=== PATIENT | male | born 1960 | race Caucasian/White ===

== ENCOUNTER 2017-12-15 16:45 | Inpatient (IN) | payer BC ==
[2017-12-15] VITALS (10 sets, daily range): BP systolic 97–198; BP diastolic 52–150; PULSE 86–128; RESP 18–36; TEMP 97.8–98.9; O2SAT 85–100
[~2017-12-15] VITALS: Ht 182.9 cm; Wt 116.5 kg
[~2017-12-15 16:45] MED LIST: AUGM875 PO; CLON1 PO; LEXA10TA PO
[2017-12-15] MEDS ORDERED: SUCCINYLCHOLINE CHLORIDE 200 MG/10 ML VIAL ONE (16:51)
[2017-12-15] MEDS ORDERED: ETOMIDATE 40 MG/20 ML VIAL ONE (16:51)
[2017-12-15] MEDS ORDERED: PROPOFOL 500 MG/50 ML INJ 50 ML ONE (16:52)
[2017-12-15] MEDS ORDERED: SODIUM CHLOR 0.9% 1000 ML INJ 1,000 ML IV SCH ×2 (17:07→18:39)
[2017-12-15] MEDS ORDERED: SUCCINYLCHOLINE CHLORIDE 100 MG/5 ML SYRINGE IV PUSH ONE (17:15)
[2017-12-15] MEDS ORDERED: PROPOFOL 1000 MG/100 ML INJ 100 ML IV PRN (17:15)
[2017-12-15] MEDS ORDERED: SODIUM CHLORIDE 0.9% FLUSH 10 ML FLUSH IV FLUSH PRN ×2 (17:15→18:45)
[2017-12-15] MEDS ORDERED: ETOMIDATE 20 MG/10 ML VIAL IV PUSH ONE (17:15)
[2017-12-15] MEDS ORDERED: ACTIVATED CHARCOAL/SORBITOL LIQUID 25 GM/120 ML BTL NG ONE (17:15)
--- NOTE | 2017-12-15 17:55 | RADRPT ---
EXAM DATE/TIME: 12/15/2017 17:32 [facility] COMPARISON: No previous studies available for comparison. INDICATIONS : Post intubation. MEDICAL HISTORY : None. SURGICAL HISTORY : None. ENCOUNTER: Initial ACUITY: 1 day PAIN SCORE: Non-responsive. LOCATION: Bilateral chest FINDINGS: Single AP view of the chest. Endotracheal tube is in place with the tip 3.5 cm above the brayan. Naso gastric tube is in place and coiled in the stomach. Low lung volumes. Patchy left lung base atelectas is. No evidence of pleural effusion or pneumothorax. Mildly prominent cardiac silhouette. CONCLUSION: Endotracheal tube and nasogastric tube in place. Low lung volumes. Elroy Esquivel MD on December 15, 2017 at 17:52 Board Certified Radiologist. This report was verified electronically.
[2017-12-15 18:01] LABS: AUTOMATED NEUTROPHIL # 6.2 TH/MM3 (1.8-7.7); BASOPHIL % 0.4 % (0.0-2.0); EOSINOPHIL % 0.2 % (0.0-4.0); HEMATOCRIT 41.1 % (39.0-51.0); HEMOGLOBIN 13.8 GM/DL (13.0-17.0); LYMPHOCYTE # 1.1 TH/MM3 (1.0-4.8); MEAN CELL VOLUME 82.9 FL (80.0-100.0); MEAN CORPUSCULAR HEMOGLOBIN 27.9 PG (27.0-34.0); MEAN CORPUSCULAR HGB CONC 33.6 % (32.0-36.0); MEAN PLATELET VOLUME 9.8 FL (7.0-11.0); MONO % 7.8 % (0.0-8.0); MONOCYTE # 0.6 TH/MM3 (0-0.9); NEUT % 77.6 % (16.0-70.0); PLATELET COUNT 194 TH/MM3 (150-450); RED BLOOD COUNT 4.96 MIL/MM3 (4.50-5.90); RED CELL DISTRIBUTION WIDTH 14.7 % (11.6-17.2)
[2017-12-15 18:03] LABS: INTERNATIONAL NORMALIZED RATIO 1.1 RATIO; PROTHROMBIN TIME - PATIENT 11.1 SEC (9.8-11.6)
--- NOTE | 2017-12-15 18:04 | PD ---
HPI Chief Complaint: OD/ Ingestion Time Seen by Provider: 17:07 Travel History International Travel<30 days: No Contact w/Intl Traveler<30days: No Traveled to known affect area: No History of Present Illness HPI 57-year-old male was brought to the emergency room by EMS emergently after a possible overdose with numerous surgical pills. His daughter found him unresponsive at home. She had last seen him at 9:30 in the morning when he went out for a job interview. She came home at 2:30 PM and found him passed out. She thought he was sleeping. At 330 she tried to wake him up and he was not waking up and she noticed empty bottle of Seroquel. The pill bottle was filled yesterday with 3 month supply and it was empty. No known vomiting. Patient was GCS of 8 on route. He was tachycardic upon arrival with GCS of 8. Patient obviously was unable to give any meaningful history. As per the daughter he has overdosed 8 years ago. PFS Past Medical History Narrative Medical List of his past medical, surgical, social and family history reviewed from the nursing note. Anxiety: Yes Headaches: Yes Hypertension: Yes Social History Alcohol Use: No Tobacco Use: No Substance Use: No Allergies-Medications (Allergen,Severity, Reaction): Coded Allergies: No Known Allergies (Verified , 10/17/10) Comments List of his allergies reviewed from the nursing note. Reported Meds & Prescriptions Reported Meds & Active Scripts Active Reported Augmentin (Amoxicillin/Clavulanate Potassium) 875 Mg Tab 875 Mg PO BID Klonopin (Clonazepam) 1 Mg Tab 1 Mg PO HS Lexapro (Escitalopram Oxalate) 10 Mg Tab 10 Mg PO DAILY Narrative Medication List of his home medications reviewed from the nursing note Review of Systems ROS Limitations: Unresponsive Except as stated in HPI: all other systems reviewed are Neg Physical Exam Narrative GENERAL: Unresponsive, obese, moderate distress SKIN: Focused skin assessment warm/dry. HEAD: Atraumatic. Normocephalic. EYES: Pupils equal and round. No scleral icterus. No injection or drainage. ENT: No nasal bleeding or discharge. Mucous membranes pink and moist. NECK: Trachea midline. No JVD. CARDIOVASCULAR: Regular rate and rhythm. No murmur appreciated. RESPIRATORY: No accessory muscle use. Clear to auscultation. Breath sounds equal bilaterally. GASTROINTESTINAL: Abdomen soft, non-tender, nondistended. Hepatic and splenic margins not palpable. MUSCULOSKELETAL: No obvious deformities. No clubbing. No cyanosis. No edema. NEUROLOGICAL: GCS of 8. PSYCHIATRIC: Unable to assess Data Data Last Documented VS Vital Signs Date Time Temp Pulse Resp B/P (MAP) Pulse Ox O2 Delivery O2 Flow Rate FiO2 12/15/17 17:03 98 100 12/15/17 16:59 123 36 132/94 (107) Room Air 12/15/17 16:48 98.9 Orders Orders Etomidate Inj (Amidate Inj) (12/15/17 16:51) Succinylcholine Inj (Quelicin Inj) (12/15/17 16:51) Propofol 500 Mg/50 Ml Inj (Diprivan 500 (12/15/17 16:52) Electrocardiogram (12/15/17 17:07) Complete Blood Count With Diff (12/15/17 17:07) Comprehensive Metabolic Panel (12/15/17 17:07) Creatine Kinase (Cpk) (12/15/17 17:07) Prothrombin Time / Inr (Pt) (12/15/17 17:07) Troponin I (12/15/17 17:07) Thyroid Stimulating Hormone (12/15/17 17:07) Urinalysis - C+S If Indicated (12/15/17 17:07) Arterial Blood Gas (Abg) (12/15/17 17:07) Chest, Single Ap (12/15/17 17:07) Ct Brain W/O Iv Contrast(Rout) (12/15/17 17:07) Blood Glucose (12/15/17 17:07) Ecg Monitoring (12/15/17 17:07) Iv Access Insert/Monitor (12/15/17 17:07) Oximetry (12/15/17 17:07) Sodium Chloride 0.9% Flush (Ns Flush) (12/15/17 17:15) Sodium Chlor 0.9% 1000 Ml Inj (Ns 1000 M (12/15/17 17:07) Drug Screen, Random Urine (12/15/17 17:07) Alcohol (Ethanol) (12/15/17 17:07) Tylenol (Acetaminophen) (12/15/17 17:07) Salicylates (Aspirin) (12/15/17 17:07) Charcoal Active-Sorbitol Liq (Charcoal A (12/15/17 17:15) Succinylcholine Inj (Quelicin Inj) (12/15/17 17:15) Etomidate Inj (Amidate Inj) (12/15/17 17:15) Propofol 1000 Mg/100 Ml Inj (Diprivan 10 (12/15/17 17:15) Von-Gastric Tube Insert/Mon (12/15/17 17:07) Urinary Catheter - Remove (12/15/17 17:07) Call Poison Control (12/15/17 17:07) Restraints Non-Violent RAMA.Q3H (12/15/17 17:07) Labs Laboratory Tests Test 12/15/17 17:00 [facility] Medical Decision Making Medical Screen Exam Complete: Yes Emergency Medical Condition: Yes Medical Record Reviewed: Yes Interpretation(s) Twelve-lead EKG was reviewed by me. Normal sinus rhythm, normal axis, peaked T waves, tachycardia. Heart rate of 125 bpm. Differential Diagnosis Intentional overdose on Seroquel, intracranial bleed Narrative Course 5:59 PM based on his mental status I decided to intubate him to protect his airway. Please refer to my procedure note. Daughter initially was against the decision. She is a nurse. I explained to her that it would be extremely risky to keep the patient with this GCS without protecting his airway. He is a high risk of aspiration especially if he starts to vomit. She eventually understood and agreed. Patient tolerated the procedure well. Awaiting for chest x-ray and other labs. Patient will require to be admitted to the ICU. Awaiting for the medical transcription radiology to call back. I have ordered charcoal through the OG tube. The nurse is to call poison control. Critical Care Narrative Aggregate critical care time was 60 minutes. Time to perform other separately billable procedures was not included in the critical care time. My time did not include minutes spent treating any other patients simultaneously or on activities that did not directly contribute to the patient's treatment. The services I provided to this patient were to treat and/or prevent clinically significant deterioration that could result in: Obtunded, respiratory failure, intentional overdose of Seroquel, ventilator I provided critical care services requiring my management, as noted below: Chart data review, documentation time, medication orders and management, vital sign assessments/reviewing monitor data, ordering and reviewing lab tests, ordering and interpreting/reviewing x-rays and diagnostic studies, care of the patient and discussion of the patient with the admitting physicians. Procedures Procedure Narrative After the risks and benefits were discussed the following procedure was performed: INTUBATION: The patient was put in optimal position for the procedure. Rapid sequence intubation was initiated by me using 30 milligrams of etomidate IV and 150 milligrams of succinylcholine IV. The patient was intubated with a 7.5 cuffed endotracheal tube. Tube placement was confirmed by visualization of the tube and balloon passing through the cords, capnometry and subsequent chest x-ray. Breath sounds were equal and well aerated bilaterally postintubation. No breath sounds over stomach. Patient tolerated procedure well. EKG Prior to Arrival: No Diagnosis Primary Impression: Intentional SSRI (selective serotonin reuptake inhibitor) overdose Qualified Codes: T43.222A - Poisoning by selective serotonin reuptake inhibitors, intentional self-harm, initial encounter Additional Impressions: Respiratory failure Qualified Codes: J96.00 - Acute respiratory failure, unspecified whether with hypoxia or hypercapnia Altered mental status Qualified Codes: R40.2431 - Davi coma scale score 3-8, in the field [emt or ambulance] Admitting Information Admitting Physician Requests: Anjel Banda MD Dec 15, 2017 18:04
[2017-12-15 18:29] LABS: ALBUMIN 3.6 GM/DL (3.4-5.0); AST (GOT) 68 U/L (15-37); BICARBONATE 26.4 MEQ/L (21.0-32.0); BLOOD UREA NITROGEN 14 MG/DL (7-18); CALCIUM 8.5 MG/DL (8.5-10.1); CHLORIDE 106 MEQ/L (98-107); CREATININE 1.24 MG/DL (0.60-1.30); GLOMERULAR FILTRATION RATE 61 ML/MIN (>89); GLUCOSE,RANDOM 148 MG/DL (74-106); SODIUM (NA) 142 MEQ/L (136-145)
[2017-12-15] MEDS ORDERED: NURSING INFORMATION XX SCH (18:45)
[2017-12-15] MEDS ORDERED: SENNOSIDES 8.6 MG TAB PO PRN (18:45)
[2017-12-15] MEDS ORDERED: BISACODYL 10 MG SUPP RECTAL PRN (18:45)
[2017-12-15] MEDS ORDERED: MAGNESIUM HYDROXIDE SUSP 30 ML CUP PO PRN (18:45)
[2017-12-15] MEDS ORDERED: LACTULOSE SYRUP 20 GM/30 ML CUP PO PRN (18:45)
[2017-12-15] MEDS: HEPARIN SODIUM - SQ 10,000 UNITS/ML VIAL SQ SCH (18:45)
[2017-12-15] MEDS ORDERED: CHLORHEXIDINE GLUCONATE 2 % 1 PACK (2 CLOTHS) TOP PRN (18:45)
[2017-12-15] MEDS ORDERED: RESP: ALBUTEROL 2.5 MG/IPRATROPIUM 0.5 MG NEB (PRN) INH (18:45)
[2017-12-15] MEDS ORDERED: MIDAZOLAM HCL 2 MG/2 ML VIAL IV PUSH PRN (18:45)
[2017-12-15 18:49] LABS: BACTERIA, URINE RARE /hpf; BILIRUBIN, URINE NEG (NEG); BLOOD, URINE NEG (NEG); GLUCOSE,URINE NEG (NEG); HYALINE CAST, URINE 2 /lpf (RARE); KETONE, URINE 10 mg/dL (NEG); MUCUS URINE FEW /lpf (OCC); NITRITE,URINE NEG (NEG); PH, URINE 5.5 (5.0-8.5); URINE COLOR YELLOW (YELLW/STRAW); URINE LEUKOCYTE ESTERASE NEG (NEG)
[2017-12-15 19:11] LABS: ALKALINE PHOSPHATASE 80 U/L (45-117); TOTAL PROTEIN 6.6 GM/DL (6.4-8.2)
[2017-12-15 19:12] LABS: ACETAMINOPHEN LESS THAN 2.0 MCG/ML (10.0-30.0); ALT (GPT) 68 U/L (12-78); TOTAL BILIRUBIN ADULT 0.7 MG/DL (0.2-1.0); TROPONIN I LESS THAN 0.02 NG/ML (0.02-0.05)
[2017-12-15] MEDS ORDERED: SERO200T PO (19:21)
[2017-12-15] MEDS ORDERED: AMLO10TA2 PO (19:21)
[2017-12-15] MEDS ORDERED: GLIP10TA6 PO (19:21)
[2017-12-15] MEDS ORDERED: LEXA20TA PO (19:21)
--- NOTE | 2017-12-15 20:21 | RADRPT ---
EXAM DATE/TIME: 12/15/2017 19:56 [facility] COMPARISON: No previous studies available for comparison. INDICATIONS : Altered mental status. Possible overdose. RADIATION DOSE: 44.03 CTDIvol (mGy) MEDICAL HISTORY : Non-responsive. SURGICAL HISTORY : Non-responsive. ENCOUNTER: Initial ACUITY: 1 day PAIN SCALE: Non-responsive LOCATION: cranial TECHNIQUE: Multiple contiguous axial images were obtained of the head. Using automated exposure control and adj ustment of the mA and/or kV according to patient size, radiation dose was kept as low as reasonably a chievable to obtain optimal diagnostic quality images. DICOM format image data is available electro nically for review and comparison. FINDINGS: CEREBRUM: The ventricles are normal for age. No evidence of midline shift, mass lesion, hemorrhage or acute in farction. No extra-axial fluid collections are seen. POSTERIOR FOSSA: The cerebellum and brainstem are intact. The 4th ventricle is midline. The cerebellopontine angle i s unremarkable. EXTRACRANIAL: The visualized portion of the orbits is intact. Small fluid seen in the right mastoid air cells. SKULL: The calvaria is intact. No evidence of skull fracture. CONCLUSION: No acute intracranial abnormality demonstrated. Right mastoiditis possible in the proper clinical set ting. Ashwin Collado MD on December 15, 2017 at 20:18 Board Certified Radiologist. This report was verified electronically.
[2017-12-15] MEDS: SODIUM CHLORIDE 0.9% FLUSH 10 ML FLUSH IV FLUSH SCH (22:02)
[2017-12-15] MEDS: FAMOTIDINE 20 MG/2 ML VIAL IV PUSH SCH (22:02)
[2017-12-15] MEDS: DOCUSATE SODIUM 50 MG/SENNA 8.6 MG TAB PO SCH (22:02)
[2017-12-15] MEDS: CHLORHEXIDINE 0.12% (ORAL KIT) 15 ML CUP MT SCH (22:02)
--- NOTE | 2017-12-15 23:26 | HHI.HP ---
HPI Service Critical Care Medicine Primary Care Physician Jorge Hamilton MD Admission Diagnosis Altered mental status, respiratory failure, intentional overdose on Diagnosis: Travel History International Travel<30 Days: No Contact w/Intl Traveler <30 Da: No Traveled to Known Affected Are: No History of Present Illness 57-year-old male was brought to the emergency room by EMS after a possible overdose with numerous Seroquel pills. His daughter found him unresponsive at home. She had last seen him at 9:30 in the morning when he went out for a job interview. She came home at 2:30 PM and found him unarousable. She thought he was sleeping. At 330 she tried to wake him up and he was not waking up. She has also noticed an empty bottle of Seroquel. The pill bottle was filled yesterday with 3 month supply and it was empty. No known vomiting. Patient was GCS of 8 on route. He was tachycardic upon arrival with GCS of 8. Patient obviously was unable to give any meaningful history. As per the daughter he has overdosed 8 years ago. Due to borderline GCS,, tachypnea and a high risk of an aspiration without ability to protect and airway, he was intubated in the emergency department by ED attending. Review of Systems ROS Unobtainable patient sedated and intubated Past Family Social History Allergies: Coded Allergies: No Known Allergies (Verified , 10/17/10) Past Medical History Anxiety: Yes Headaches: Yes Hypertension: Yes Past Surgical History Unobtainable Reported Medications Reported Meds & Active Scripts Active Reported Lexapro (Escitalopram Oxalate) 20 Mg Tab 20 Mg PO DAILY Glipizide 10 Mg Tab 10 Mg PO DAILY Take 30 minutes before a meal Amlodipine (Amlodipine Besylate) 10 Mg Tab 10 Mg PO DAILY Seroquel (Quetiapine Fumarate) 200 Mg Tab 200 Mg PO DAILY Active Ordered Medications Current Medications Medications (Trade) Dose Ordered Sig/Abbe Route PRN Reason Start Time Stop Time Status Last Admin Dose Admin Sodium Chloride 1,000 ml @ 124 mls/hr Q8H4M IV 12/15/17 18:39 Sodium Chloride (NS Flush) 2 ml UNSCH PRN IV FLUSH FLUSH AFTER USING IV ACCESS 12/15/17 18:45 Sodium Chloride (NS Flush) 2 ml BID IV FLUSH 12/15/17 21:00 12/15/17 22:02 Acetaminophen (Tylenol) 650 mg Q6H PRN PO PAIN 1-10 AND/OR FEVER >101F 12/15/17 18:45 Famotidine (Pepcid Inj) 20 mg Q12HR IV PUSH 12/15/17 21:00 12/15/17 22:02 Midazolam HCl (Versed Inj) 2 mg Q1H PRN IV PUSH SEDATION 12/15/17 18:45 Ondansetron HCl (Zofran Inj) 4 mg Q6H PRN IV PUSH NAUSEA OR VOMITING 12/15/17 18:45 Albuterol/ Ipratropium (Duoneb Neb) 1 ampule Q2HR NEB PRN INH WHEEZING 12/15/17 18:45 Heparin Sodium (Porcine) (Heparin Inj) 5,000 units Q8H SQ 12/15/17 18:45 Miscellaneous Information 1 Q361D XX 12/15/17 18:45 Chlorhexidine Gluconate (Chlorhexidine 2% Cloth) 3 pack Taper DAILY@04 TOP 12/16/17 04:00 12/12/18 03:59 Chlorhexidine Gluconate (Chlorhexidine 2% Cloth) 3 pack UNSCH PRN TOP HYGIENIC CARE 12/15/17 18:45 Senna/Docusate Sodium (Bridget-Colace) 1 tab BID PO 12/15/17 21:00 12/15/17 22:02 Magnesium Hydroxide (Milk Of Magnesia Liq) 30 ml Q12H PRN PO Mild constipation 12/15/17 18:45 Sennosides (Senokot) 17.2 mg Q12H PRN PO Moderate constipation 12/15/17 18:45 Bisacodyl (Dulcolax Supp) 10 mg DAILY PRN RECTAL SEVERE CONSITIPATION 12/15/17 18:45 Lactulose (Lactulose Liq) 30 ml DAILY PRN PO SEVERE CONSITIPATION 12/15/17 18:45 Chlorhexidine Gluconate (Peridex 0.12% Liq) 15 ml BID@08,20 MT 12/15/17 20:00 12/15/17 22:02 Propofol 100 ml @ 0 mls/hr TITRATE PRN IV SEDATION 12/15/17 18:45 Family History Unobtainable Social History Alcohol Use: No Tobacco Use: No Substance Use: No Physical Exam Vital Signs Vital Signs Date Time Temp Pulse Resp B/P (MAP) Pulse Ox O2 Delivery O2 Flow Rate FiO2 12/15/17 20:17 97.8 108 19 145/75 (98) 98 12/15/17 20:15 100 40 12/15/17 19:55 100 100 12/15/17 19:10 100 40 12/15/17 19:01 98 16 110/60 (77) 98 Ventilator 50 12/15/17 18:26 100 18 97/52 (67) 99 Ventilator 50 12/15/17 17:03 98 100 12/15/17 17:02 100 12/15/17 16:59 123 36 132/94 (107) 85 Room Air 12/15/17 16:48 98.9 128 24 198/150 (166) 93 Physical Exam GENERAL: Unresponsive, obese, moderate distress SKIN: Focused skin assessment warm/dry. HEAD: Atraumatic. Normocephalic. EYES: Pupils equal and round. No scleral icterus. No injection or drainage. ENT: No nasal bleeding or discharge. Mucous membranes pink and moist. NECK: Trachea midline. No JVD. CARDIOVASCULAR: Regular rate and rhythm. No murmur appreciated. RESPIRATORY: No accessory muscle use. Clear to auscultation. Breath sounds equal bilaterally. GASTROINTESTINAL: Abdomen soft, non-tender, nondistended. Hepatic and splenic margins not palpable. MUSCULOSKELETAL: No obvious deformities. No clubbing. No cyanosis. No edema. NEUROLOGICAL: GCS of 8. Laboratory Laboratory Tests Test 12/15/17 17:00 12/15/17 17:07 12/15/17 18:10 12/15/17 21:00 White Blood Count 8.0 Red Blood Count 4.96 Hemoglobin 13.8 Hematocrit 41.1 Mean Corpuscular Volume 82.9 Mean Corpuscular Hemoglobin 27.9 Mean Corpuscular Hemoglobin Concent 33.6 Red Cell Distribution Width 14.7 Platelet Count 194 Mean Platelet Volume 9.8 Neutrophils (%) (Auto) 77.6 Lymphocytes (%) (Auto) 14.0 Monocytes (%) (Auto) 7.8 Eosinophils (%) (Auto) 0.2 Basophils (%) (Auto) 0.4 Neutrophils # (Auto) 6.2 Lymphocytes # (Auto) 1.1 Monocytes # (Auto) 0.6 Eosinophils # (Auto) 0.0 Basophils # (Auto) 0.0 CBC Comment DIFF FINAL Differential Comment Prothrombin Time 11.1 Prothromb Time International Ratio 1.1 Blood Urea Nitrogen 14 Creatinine 1.24 Random Glucose 148 Total Protein 6.6 Albumin 3.6 Calcium Level 8.5 Alkaline Phosphatase 80 Aspartate Amino Transf (AST/SGOT) 68 Alanine Aminotransferase (ALT/SGPT) 68 Total Bilirubin 0.7 Sodium Level 142 Potassium Level 5.0 Chloride Level 106 Carbon Dioxide Level 26.4 Anion Gap 10 Estimat Glomerular Filtration Rate 61 Total Creatine Kinase 203 Troponin I LESS THAN 0.02 Thyroid Stimulating Hormone 3rd Gen 0.787 Salicylates Level LESS THAN 1.7 Acetaminophen Level LESS THAN 2.0 Ethyl Alcohol Level LESS THAN 3 Blood Gas Puncture Site RT RADIAL Blood Gas Patient Temperature 98.6 Blood Gas HCO3 25 Blood Gas Base Excess 0.2 Blood Gas Oxygen Saturation 98 Arterial Blood pH 7.35 Arterial Blood Partial Pressure CO2 47 Arterial Blood Partial Pressure O2 220 Arterial Blood Oxygen Content 18.8 Arterial Blood Carboxyhemoglobin 0.9 Arterial Blood Methemoglobin 0.7 Blood Gas Hemoglobin 13.3 Oxygen Delivery Device VENTILATOR Blood Gas Ventilator Setting Blood Gas Inspired Oxygen 100 Urine Color YELLOW Urine Turbidity CLEAR Urine pH 5.5 Urine Specific [place] 1.016 Urine Protein 30 Urine Glucose (UA) NEG Urine Ketones 10 Urine Occult Blood NEG Urine Nitrite NEG Urine Bilirubin NEG Urine Urobilinogen LESS THAN 2.0 Urine Leukocyte Esterase NEG Urine RBC 1 Urine WBC 1 Urine Bacteria RARE Urine Hyaline Casts 2 Urine Mucus FEW Microscopic Urinalysis Comment CATH-CULTURE IND Urine Opiates Screen NEG Urine Barbiturates Screen NEG Urine Amphetamines Screen NEG Urine Benzodiazepines Screen NEG Urine Cocaine Screen NEG Urine Cannabinoids Screen NEG Date/Time Source Procedure Growth Status 12/15/17 18:10 Urine Catheterized Urine Urine Culture Pending Received Result Diagram: 12/15/17 1700 12/15/17 1700 Imaging Last [address] 12/15/171706 Signed Impressions: Service Date/Time: Friday, December 15, 2017 19:56 - CONCLUSION: No acute intracranial abnormality demonstrated. Right mastoiditis possible in the proper clinical setting. Ashwin Collado MD Chest X-Ray [id number]/15/[id number] Signed Impressions: Service Date/Time: Friday, December 15, 2017 17:32 - CONCLUSION: Endotracheal tube and nasogastric tube in place. Low lung volumes. MD Nneka Holm VTE Risk Assessment Nneka VTE Risk Assessment: Mod/High Risk (score >= 2) Pawanrini Risk Assessment Model Point Value = 1 Point Value = 2 Point Value = 3 Point Value = 5 Age 41-60 Minor surgery BMI > 25 kg/m2 Swollen legs Varicose veins or History of unexplained or recurrent spontaneous Oral contraceptives or hormone replacement Sepsis (< 1 month) Serious lung disease, including pneumonia (< 1 month) Abnormal pulmonary function Acute myocardial infarction Congestive heart failure (< 1 month) History of inflammatory bowel disease Medical patient at bed rest Age 61-74 Arthroscopic surgery Major open surgery (> 45 min) Laparoscopic surgery (> 45 min) Malignancy Confined to bed (> 72 hours) Immobilizing plaster cast Central venous access Age >= 75 History of VTE Family history of VTE Factor V Leiden Prothrombin [id number] Lupus anticoagulant Anticardiolipin antibodies Elevated serum homocysteine Heparin-induced thrombocytopenia Other congenital or acquired thrombophilia Stroke (< 1 month) Elective arthroplasty Hip, pelvis, or leg fracture Acute spinal cord injury (< 1 month) Prophylaxis Regimen Total Risk Factor Score Risk Level Prophylaxis Regimen 0-1 Low Early ambulation 2 Moderate Order ONE of the following: *Sequential Compression Device (SCD) *Heparin 5000 units SQ BID 3-4 Higher Order ONE of the following medications: *Heparin 5000 units SQ TID *Enoxaparin/Lovenox 40 mg SQ daily (WT < 150 kg, CrCl > 30 mL/min) *Enoxaparin/Lovenox 30 mg SQ daily (WT < 150 kg, CrCl > 10-29 mL/min) *Enoxaparin/Lovenox 30 mg SQ BID (WT < 150 kg, CrCl > 30 mL/min) AND/OR *Sequential Compression Device (SCD) 5 or more Highest Order ONE of the following medications: *Heparin 5000 units SQ TID (Preferred with Epidurals) *Enoxaparin/Lovenox 40 mg SQ daily (WT < 150 kg, CrCl > 30 mL/min) *Enoxaparin/Lovenox 30 mg SQ daily (WT < 150 kg, CrCl > 10-29 mL/min) *Enoxaparin/Lovenox 30 mg SQ BID (WT < 150 kg, CrCl > 30 mL/min) AND *Sequential Compression Device (SCD) Assessment and Plan Assessment and Plan Respiratory failure -Intubated for airway protection -No weaning until neurologically improve -Vent bundle -DuoNeb's as needed Altered mental status -CT head negative -Most likely Seroquel overdose -Poison Control Center notified and assistance appreciated -Serial labs Hypertension -Resume home dose of Norvasc when indicated DVT GI prophylaxis -Colin's and SCDs -Subcu heparin -Pepcid Critical Care: The total critical care time was 35 minutes. Time to perform other separately billable procedures was not included in the critical care time. David Nguyen MD Dec 15, 2017 11:26 pm
[2017-12-16] VITALS (19 sets, daily range): BP systolic 98–174; BP diastolic 59–96; PULSE 62–128; RESP 14–33; TEMP 97.1–99.7; O2SAT 92–98
[2017-12-16] MEDS: CHLORHEXIDINE GLUCONATE 2 % 1 PACK (2 CLOTHS) TOP SCH (03:56)
[2017-12-16] MEDS: PROPOFOL 1000 MG/100 ML INJ 100 ML IV PRN ×2 (03:56→06:37)
[2017-12-16 04:07] LABS: AUTOMATED NEUTROPHIL # 7.2 TH/MM3 (1.8-7.7); BASOPHIL % 0.2 % (0.0-2.0); EOSINOPHIL # 0.1 TH/MM3 (0-0.4); EOSINOPHIL % 0.8 % (0.0-4.0); HEMATOCRIT 40.1 % (39.0-51.0); HEMOGLOBIN 13.4 GM/DL (13.0-17.0); LYMPH % 9.1 % (9.0-44.0); LYMPHOCYTE # 0.8 TH/MM3 (1.0-4.8); MEAN CELL VOLUME 83.4 FL (80.0-100.0); MEAN CORPUSCULAR HEMOGLOBIN 27.9 PG (27.0-34.0); MEAN CORPUSCULAR HGB CONC 33.5 % (32.0-36.0); MEAN PLATELET VOLUME 9.1 FL (7.0-11.0); MONO % 7.3 % (0.0-8.0); MONOCYTE # 0.6 TH/MM3 (0-0.9); NEUT % 82.6 % (16.0-70.0); PLATELET COUNT 188 TH/MM3 (150-450); RED BLOOD COUNT 4.81 MIL/MM3 (4.50-5.90); RED CELL DISTRIBUTION WIDTH 15.1 % (11.6-17.2); WHITE BLOOD COUNT 8.8 TH/MM3 (4.0-11.0)
[2017-12-16 04:20] LABS: ALBUMIN 3.4 GM/DL (3.4-5.0); ALT (GPT) 62 U/L (12-78); AST (GOT) 36 U/L (15-37); BICARBONATE 27.7 MEQ/L (21.0-32.0); BLOOD UREA NITROGEN 16 MG/DL (7-18); CALCIUM 8.6 MG/DL (8.5-10.1); CHLORIDE 108 MEQ/L (98-107); CREATININE 1.28 MG/DL (0.60-1.30); GLOMERULAR FILTRATION RATE 58 ML/MIN (>89); GLUCOSE,RANDOM 98 MG/DL (74-106); MAGNESIUM 2.5 MG/DL (1.5-2.5); PHOSPHORUS 3.8 MG/DL (2.5-4.9); SODIUM (NA) 144 MEQ/L (136-145)
[2017-12-16 04:23] LABS: ALKALINE PHOSPHATASE 80 U/L (45-117); TOTAL BILIRUBIN ADULT 0.7 MG/DL (0.2-1.0); TOTAL PROTEIN 6.1 GM/DL (6.4-8.2)
[2017-12-16 04:25] LABS: INTERNATIONAL NORMALIZED RATIO 1.1 RATIO; PROTHROMBIN TIME - PATIENT 11.3 SEC (9.8-11.6)
--- NOTE | 2017-12-16 05:42 | RADRPT ---
EXAM DATE/TIME: 12/16/2017 04:42 [facility] COMPARISON: CHEST SINGLE AP, December 15, 2017, 17:32. INDICATIONS : Short of breath. MEDICAL HISTORY : None. SURGICAL HISTORY : None. ENCOUNTER: Initial ACUITY: 1 day PAIN SCORE: 0/10 LOCATION: Bilateral chest FINDINGS: A single view of the chest demonstrates endotracheal tube in good position. NG coiled in stomach. Sta ble elevated left hemidiaphragm. Mild bilateral mostly basilar airspace disease relatively stable. No pneumothorax. CONCLUSION: 1. Stable exam. Mild basilar airspace disease. Endotracheal tube and nasogastric tube unchanged. Aydin Edmonds MD on December 16, 2017 at 5:41 Board Certified Radiologist. This report was verified electronically.
[2017-12-16] MEDS: HEPARIN SODIUM - SQ 10,000 UNITS/ML VIAL SQ SCH ×3 (06:35→18:20)
[2017-12-16] MEDS: CHLORHEXIDINE 0.12% (ORAL KIT) 15 ML CUP MT SCH ×2 (08:26→20:00)
[2017-12-16] MEDS: DOCUSATE SODIUM 50 MG/SENNA 8.6 MG TAB PO SCH ×2 (08:26→20:58)
[2017-12-16] MEDS: FAMOTIDINE 20 MG/2 ML VIAL IV PUSH SCH ×2 (08:26→20:57)
[2017-12-16] MEDS: SODIUM CHLORIDE 0.9% FLUSH 10 ML FLUSH IV FLUSH SCH ×2 (08:27→20:58)
--- NOTE | 2017-12-16 08:29 | HHI.CCPN ---
Subjective Remarks/Hospital Course 57-year-old male was brought to the emergency room by EMS after a possible overdose with numerous Seroquel pills. His daughter found him unresponsive at home. She had last seen him at 9:30 in the morning when he went out for a job interview. She came home at 2:30 PM and found him unarousable. She thought he was sleeping. At 330 she tried to wake him up and he was not waking up. She has also noticed an empty bottle of Seroquel. The pill bottle was filled yesterday with 3 month supply and it was empty. No known vomiting. Patient was GCS of 8 on route. He was tachycardic upon arrival with GCS of 8. Patient obviously was unable to give any meaningful history. As per the daughter he has overdosed 8 years ago. Due to borderline GCS,, tachypnea and a high risk of an aspiration without ability to protect and airway, he was intubated in the emergency department by ED attending. 12/16 Patient is sedated with Diprivan and intubated. Afebrile. Objective Vital Signs Date Time Temp Pulse Resp B/P (MAP) Pulse Ox O2 Delivery O2 Flow Rate FiO2 12/16/17 06:00 66 12/16/17 04:21 97 40 12/16/17 04:00 97.2 14 98/59 (72) 12/15/17 19:01 Ventilator Intake and Output 12/16/17 12/16/17 12/17/17 08:00 16:00 00:00 Intake Total 197 ml Output Total 650 ml Balance -453 ml Result Diagram: 12/16/17 0351 12/16/17 0351 Other Results Laboratory Tests Test 12/15/17 17:00 12/15/17 17:07 12/15/17 18:10 12/15/17 21:00 White Blood Count 8.0 TH/MM3 Red Blood Count 4.96 MIL/MM3 Hemoglobin 13.8 GM/DL Hematocrit 41.1 % Mean Corpuscular Volume 82.9 FL Mean Corpuscular Hemoglobin 27.9 PG Mean Corpuscular Hemoglobin Concent 33.6 % Red Cell Distribution Width 14.7 % Platelet Count 194 TH/MM3 Mean Platelet Volume 9.8 FL Neutrophils (%) (Auto) 77.6 % Lymphocytes (%) (Auto) 14.0 % Monocytes (%) (Auto) 7.8 % Eosinophils (%) (Auto) 0.2 % Basophils (%) (Auto) 0.4 % Neutrophils # (Auto) 6.2 TH/MM3 Lymphocytes # (Auto) 1.1 TH/MM3 Monocytes # (Auto) 0.6 TH/MM3 Eosinophils # (Auto) 0.0 TH/MM3 Basophils # (Auto) 0.0 TH/MM3 CBC Comment DIFF FINAL Differential Comment Prothrombin Time 11.1 SEC Prothromb Time International Ratio 1.1 RATIO Blood Urea Nitrogen 14 MG/DL Creatinine 1.24 MG/DL Random Glucose 148 MG/DL Total Protein 6.6 GM/DL Albumin 3.6 GM/DL Calcium Level 8.5 MG/DL Alkaline Phosphatase 80 U/L Aspartate Amino Transf (AST/SGOT) 68 U/L Alanine Aminotransferase (ALT/SGPT) 68 U/L Total Bilirubin 0.7 MG/DL Sodium Level 142 MEQ/L Potassium Level 5.0 MEQ/L Chloride Level 106 MEQ/L Carbon Dioxide Level 26.4 MEQ/L Anion Gap 10 MEQ/L Estimat Glomerular Filtration Rate 61 ML/MIN Total Creatine Kinase 203 U/L Troponin I LESS THAN 0.02 NG/ML Thyroid Stimulating Hormone 3rd Gen 0.787 uIU/ML Salicylates Level LESS THAN 1.7 MG/DL Acetaminophen Level LESS THAN 2.0 MCG/ML Ethyl Alcohol Level LESS THAN 3 MG/DL Blood Gas Puncture Site RT RADIAL Blood Gas Patient Temperature 98.6 Blood Gas HCO3 25 mmol/L Blood Gas Base Excess 0.2 mmol/L Blood Gas Oxygen Saturation 98 % Arterial Blood pH 7.35 Arterial Blood Partial Pressure CO2 47 mmHg Arterial Blood Partial Pressure O2 220 mmHG Arterial Blood Oxygen Content 18.8 Vol % Arterial Blood Carboxyhemoglobin 0.9 % Arterial Blood Methemoglobin 0.7 % Blood Gas Hemoglobin 13.3 G/DL Oxygen Delivery Device VENTILATOR Blood Gas Ventilator Setting Blood Gas Inspired Oxygen 100 % Urine Color YELLOW Urine Turbidity CLEAR Urine pH 5.5 Urine Specific [place] 1.016 Urine Protein 30 mg/dL Urine Glucose (UA) NEG mg/dL Urine Ketones 10 mg/dL Urine Occult Blood NEG Urine Nitrite NEG Urine Bilirubin NEG Urine Urobilinogen LESS THAN 2.0 MG/DL Urine Leukocyte Esterase NEG Urine RBC 1 /hpf Urine WBC 1 /hpf Urine Bacteria RARE /hpf Urine Hyaline Casts 2 /lpf Urine Mucus FEW /lpf Microscopic Urinalysis Comment CATH-CULTURE IND Urine Opiates Screen NEG Urine Barbiturates Screen NEG Urine Amphetamines Screen NEG Urine Benzodiazepines Screen NEG Urine Cocaine Screen NEG Urine Cannabinoids Screen NEG Nasal Screen MRSA (PCR) MRSA NOT DETECTED Test 12/16/17 03:51 White Blood Count 8.8 TH/MM3 Red Blood Count 4.81 MIL/MM3 Hemoglobin 13.4 GM/DL Hematocrit 40.1 % Mean Corpuscular Volume 83.4 FL Mean Corpuscular Hemoglobin 27.9 PG Mean Corpuscular Hemoglobin Concent 33.5 % Red Cell Distribution Width 15.1 % Platelet Count 188 TH/MM3 Mean Platelet Volume 9.1 FL Neutrophils (%) (Auto) 82.6 % Lymphocytes (%) (Auto) 9.1 % Monocytes (%) (Auto) 7.3 % Eosinophils (%) (Auto) 0.8 % Basophils (%) (Auto) 0.2 % Neutrophils # (Auto) 7.2 TH/MM3 Lymphocytes # (Auto) 0.8 TH/MM3 Monocytes # (Auto) 0.6 TH/MM3 Eosinophils # (Auto) 0.1 TH/MM3 Basophils # (Auto) 0.0 TH/MM3 CBC Comment DIFF FINAL Differential Comment Prothrombin Time 11.3 SEC Prothromb Time International Ratio 1.1 RATIO Activated Partial Thromboplast Time 28.8 SEC Blood Urea Nitrogen 16 MG/DL Creatinine 1.28 MG/DL Random Glucose 98 MG/DL Total Protein 6.1 GM/DL Albumin 3.4 GM/DL Calcium Level 8.6 MG/DL Phosphorus Level 3.8 MG/DL Magnesium Level 2.5 MG/DL Alkaline Phosphatase 80 U/L Aspartate Amino Transf (AST/SGOT) 36 U/L Alanine Aminotransferase (ALT/SGPT) 62 U/L Total Bilirubin 0.7 MG/DL Sodium Level 144 MEQ/L Potassium Level 3.5 MEQ/L Chloride Level 108 MEQ/L Carbon Dioxide Level 27.7 MEQ/L Anion Gap 8 MEQ/L Estimat Glomerular Filtration Rate 58 ML/MIN Imaging Last Impressions Chest X-Ray 12/16/17 0000 Signed Impressions: Service Date/Time: Saturday, December 16, 2017 04:42 - CONCLUSION: 1. Stable exam. Mild basilar airspace disease. Endotracheal tube and nasogastric tube unchanged. Aydin Edmonds MD Head CT 12/15/17 1707 Signed Impressions: Service Date/Time: Friday, December 15, 2017 19:56 - CONCLUSION: No acute intracranial abnormality demonstrated. Right mastoiditis possible in the proper clinical setting. Ashwin Collado MD Objective Remarks GENERAL: Patient is 57 yo intubated and sedated SKIN: Focused skin assessment warm/dry. HEAD: Atraumatic. Normocephalic. EYES: Pupils equal and round. No scleral icterus. No injection or drainage. ENT: No nasal bleeding or discharge. Mucous membranes pink and moist. NECK: Trachea midline. No JVD. CARDIOVASCULAR: Regular rate and rhythm. No murmur appreciated. RESPIRATORY: No accessory muscle use. Clear to auscultation. Breath sounds equal bilaterally. GASTROINTESTINAL: Abdomen soft, non-tender, nondistended. Hepatic and splenic margins not palpable. MUSCULOSKELETAL: No obvious deformities. No clubbing. No cyanosis. No edema. NEUROLOGICAL: Sedated A/P Assessment and Plan VDRF Altered mental status -Most likely Seroquel overdose Hypertension Hx Depression Plan Neuro: On Diprivan infusion for sedation. Daily sedation vacation. CT brain: No acute abnormalities, UDS is negative Psych consult once extubated Pulm: Continue with vent support keep sats >92% Bronchodilators, ICU vent bundle Start SBT daily as lilian CV: Monitor HR and BP keep MAP>65mmHg : Monitor renal function, electrolytes replacement per protocol on NS@124ml/hr GI: On Pepcid for GI prophylaxis, start tube feeds today if remains intubated ID: Monitor for signs of infections( fever, WBC) Heme: Monitor CBC Endo: SSI if needed for glycemic control DVT GI prophylaxis -Colin's and SCDs -Subcu heparin -Pepcid Level 3 Anuj Riley MD Dec 16, 2017 08:29
[2017-12-16] MEDS ORDERED: GLUCAGON 1 MG/ML VIAL OTHER PRN (08:30)
[2017-12-16] MEDS: INSULIN NovoLIN REGULAR SUPPLEMENTAL SCALE SQ SCH ×3 (08:30→20:57)
[2017-12-16] MEDS ORDERED: DEXTROSE 50% IN WATER 50 ML VIAL(D50) IV PUSH PRN (08:30)
--- NOTE | 2017-12-16 09:13 | EKG ---
Date Performed: 12/15/2017 Time Performed: 16:51:43 PTAGE: 57 years EKG: SINUS TACHYCARDIA NONSPECIFIC ST & T-WAVE ABNORMALITY ABNORMAL RHYTHM ECG NO PREVIOUS TRACING DOCTOR: Loki Rivera Interpretating Date/Time 12/16/2017 09:12:19
[2017-12-16] MEDS ORDERED: RESP: ALBUTEROL 2.5 MG/IPRATROPIUM 0.5 MG NEB (PRN) NEB (10:45)
[2017-12-16] MEDS: RESP: ALBUTEROL 2.5 MG/IPRATROPIUM 0.5 MG NEB (SCH) NEB ×3 (12:00→20:37)
[2017-12-16] MEDS: ONDANSETRON HCL 4 MG/2 ML VIAL IV PUSH PRN (14:36)
[2017-12-16] MEDS: DILTIAZEM HCL 60 MG TAB PO SCH ×2 (15:29→20:56)
[2017-12-16] MEDS: ACETAMINOPHEN 325 MG TAB PO PRN (15:51)
[2017-12-17] VITALS (15 sets, daily range): BP systolic 112–142; BP diastolic 57–80; PULSE 83–117; RESP 18–31; TEMP 98.3–98.8; O2SAT 92–96
[2017-12-17] MEDS: RESP: ALBUTEROL 2.5 MG/IPRATROPIUM 0.5 MG NEB (SCH) NEB ×5 (00:09→15:49)
[2017-12-17] MEDS: HEPARIN SODIUM - SQ 10,000 UNITS/ML VIAL SQ SCH ×3 (02:05→18:45)
[2017-12-17] MEDS: ONDANSETRON HCL 4 MG/2 ML VIAL IV PUSH PRN (02:05)
[2017-12-17] MEDS: INSULIN NovoLIN REGULAR SUPPLEMENTAL SCALE SQ SCH ×3 (02:13→14:30)
[2017-12-17] MEDS: ACETAMINOPHEN 325 MG TAB PO PRN ×2 (02:13→15:16)
[2017-12-17] MEDS: DILTIAZEM HCL 60 MG TAB PO SCH ×3 (05:33→15:15)
[2017-12-17] MEDS: CHLORHEXIDINE GLUCONATE 2 % 1 PACK (2 CLOTHS) TOP SCH (05:33)
[2017-12-17] MEDS: CHLORHEXIDINE 0.12% (ORAL KIT) 15 ML CUP MT SCH (08:00)
[2017-12-17 08:26] LABS: AUTOMATED NEUTROPHIL # 7.9 TH/MM3 (1.8-7.7); BASOPHIL % 0.3 % (0.0-2.0); EOSINOPHIL % 0.3 % (0.0-4.0); HEMATOCRIT 40.1 % (39.0-51.0); HEMOGLOBIN 13.5 GM/DL (13.0-17.0); LYMPH % 9.3 % (9.0-44.0); LYMPHOCYTE # 0.9 TH/MM3 (1.0-4.8); MEAN CELL VOLUME 82.9 FL (80.0-100.0); MEAN CORPUSCULAR HEMOGLOBIN 27.9 PG (27.0-34.0); MEAN CORPUSCULAR HGB CONC 33.6 % (32.0-36.0); MONO % 6.8 % (0.0-8.0); MONOCYTE # 0.6 TH/MM3 (0-0.9); NEUT % 83.3 % (16.0-70.0); PLATELET COUNT 183 TH/MM3 (150-450); RED BLOOD COUNT 4.84 MIL/MM3 (4.50-5.90); RED CELL DISTRIBUTION WIDTH 15.4 % (11.6-17.2); WHITE BLOOD COUNT 9.5 TH/MM3 (4.0-11.0)
[2017-12-17] MEDS: FAMOTIDINE 20 MG/2 ML VIAL IV PUSH SCH (08:49)
[2017-12-17] MEDS: SODIUM CHLORIDE 0.9% FLUSH 10 ML FLUSH IV FLUSH SCH (08:49)
[2017-12-17] MEDS: DOCUSATE SODIUM 50 MG/SENNA 8.6 MG TAB PO SCH (08:49)
[2017-12-17 08:57] LABS: BICARBONATE 29.7 MEQ/L (21.0-32.0); CALCIUM 8.4 MG/DL (8.5-10.1); CREATININE 1.38 MG/DL (0.60-1.30)
--- NOTE | 2017-12-17 11:29 | HHI.CCPN ---
Subjective Remarks/Hospital Course 57-year-old male was brought to the emergency room by EMS after a possible overdose with numerous Seroquel pills. His daughter found him unresponsive at home. She had last seen him at 9:30 in the morning when he went out for a job interview. She came home at 2:30 PM and found him unarousable. She thought he was sleeping. At 330 she tried to wake him up and he was not waking up. She has also noticed an empty bottle of Seroquel. The pill bottle was filled yesterday with 3 month supply and it was empty. No known vomiting. Patient was GCS of 8 on route. He was tachycardic upon arrival with GCS of 8. Patient obviously was unable to give any meaningful history. As per the daughter he has overdosed 8 years ago. Due to borderline GCS,, tachypnea and a high risk of an aspiration without ability to protect and airway, he was intubated in the emergency department by ED attending. 12/16 Patient is sedated with Diprivan and intubated. Afebrile. 12/17: Afebrile. Patient's was successfully extubated 10:30 AM yesterday. Patient normal sinus rhythm heart rate in the 90s he continues on Cardizem 60 mg every 6 hours. Patient saturation 99% on room air incentive spirometry encouraged currently at 1250 cc/breath. Patient past formal swallow evaluation was on a full liquid diet to be advanced to a heart healthy diet today. Objective Vital Signs Date Time Temp Pulse Resp B/P (MAP) Pulse Ox O2 Delivery O2 Flow Rate FiO2 12/17/17 08:09 94 Nasal Cannula 2.00 12/17/17 08:00 98.3 83 18 133/80 (97) 12/16/17 12:32 36 40 Intake and Output 12/17/17 12/17/17 12/18/17 08:00 16:00 00:00 Intake Total 240 ml Balance 240 ml Result Diagram: 12/17/17 0709 12/17/17 0709 Other Results Microbiology Date/Time Source Procedure Growth Status 12/15/17 18:10 Urine Catheterized Urine Urine Culture - Final NO GROWTH IN 48 HOURS. Complete Imaging Last Impressions Chest X-Ray 12/16/17 0000 Signed Impressions: Service Date/Time: Saturday, December 16, 2017 04:42 - CONCLUSION: 1. Stable exam. Mild basilar airspace disease. Endotracheal tube and nasogastric tube unchanged. Aydin Edmonds MD Head CT 12/15/17 1707 Signed Impressions: Service Date/Time: Friday, December 15, 2017 19:56 - CONCLUSION: No acute intracranial abnormality demonstrated. Right mastoiditis possible in the proper clinical setting. Ashwin Collado MD Objective Remarks GENERAL: Patient is 57 yo obese male, in no acute distress SKIN: Focused skin assessment warm/dry. HEAD: Atraumatic. Normocephalic. EYES: Pupils equal and round. No scleral icterus. No injection or drainage. ENT: No nasal bleeding or discharge. Mucous membranes pink and moist. NECK: Trachea midline. Unable to assess JVD secondary to body habitus. CARDIOVASCULAR: Regular rate and rhythm. No murmur appreciated. RESPIRATORY: No accessory muscle use. Clear to auscultation. Breath sounds equal bilaterally. GASTROINTESTINAL: Abdomen soft, non-tender, obese nondistended. Hepatic and splenic margins not palpable. MUSCULOSKELETAL: No obvious deformities. No clubbing. No cyanosis. No edema. NEUROLOGICAL: GCS 15. Alert and oriented 3. Movement of extremities 4 motor strength 5/5 A/P Assessment and Plan VDRF-resolved Altered mental status-resolved -Most likely Seroquel overdose Hypertension Hx Depression Plan Neuro: Follow-up psychiatry recommendation CT brain: No acute abnormalities, UDS is negative GCS 15 Pulm: Continue with vent support keep sats >92% Bronchodilators Incentive spirometry every hour while awake CV: Monitor HR and BP keep MAP>65mmHg Patient remains on Cardizem 60 mg every 6 hours : Monitor renal function, electrolytes replacement per protocol GI: On Pepcid for GI prophylaxis, formal swallow evaluation performed patient placed on full liquid diet on 12/16 plan to advance diet upon reevaluation by speech ID: Monitor for signs of infections( fever, WBC) Heme: Monitor CBC Endo: SSI if needed for glycemic control DVT GI prophylaxis -Colin's and SCDs -Subcu heparin -Pepcid Level 2 follow-up. Plan transfer to [facility] in a.m. Plan transfer to [facility] floor or [facility] psych upon psychiatrist's recommendation Physician Velvet Do MD Dec 17, 2017 11:29
--- NOTE | 2017-12-17 14:32 | PD.PSY.CON ---
Provisional Diagnosis Admission Date Dec 15, 2017 at 18:05 [place] I. Major depressive disorder, recurrent, severe, without psychosis, anxiety [place] II. Deferred [place] III. Hypertension, diabetes [place] IV. Stress at work and at home [place] V. 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 Guajardo, he has medical history of hypertension and diabetes, who was brought to the emergency room by EMS after a possible overdose with numerous Seroquel pills. His daughter found him unresponsive at home. She had last seen him at 9:30 in the morning when he went out for a job interview. She came home at 2:30 PM and found him unarousable. She thought he was sleeping. At 330 she tried to wake him up and he was not waking up. She has also noticed an empty bottle of Seroquel. The pill bottle was filled yesterday with 3 month supply and it was empty. Due to borderline GCS, tachypnea and a high risk of an aspiration without ability to protect and airway , he was intubated in the emergency department by ED attending. Now extubated, with a stable parameters. Consulted to psychiatry to address suicidal attempt. EMR was reviewed. Collateral information from his daughter Tamiko Archuleta was obtained. On psychiatric evaluation I find a patient is calm, cooperative, anxious. The patient reports that in the last weeks he has been extremely stressed at home and at work. He says that about 2 weeks ago he departed to [place] in a mission of his job for 8 weeks, but due to the level of anxiety an "an episode of panic attack and nervous breakdown" he had to be taken to the ER in [place] he was sent back to the [place] a week later. After he came from [place] he has been very anxious, depressed. His 24 years old daughter got a car accident "and has been living at home since then and we had some stressful situations". Patient reports that 2 days ago he was just extremely depressed and anxious, wanted to go to sleep "for a while", and he took "a bunch of medications". He says that most poorly they were over 30 pills. Patient states that he did not was planning to . He expressed understanding about being low in emotions, feeling very distressed, overwhelmed, but he reports that he has too many reasons to live for, he wants to see his grandkids and complete his job. The patient reports that he has been compliant with his psychotropic "but they are not helping me with anxiety". He is now oriented 3 , no fluctuation of consciousness, no attention deficit. He is logical, coherent and relevant. No paranoia, no loosening of associations, no selam, no delusions are present. The patient denies the use of illegal drugs and alcohol. I spoke with his daughter, who states that this is the second time that her father overdose in 8 years. She says that she does not feel safe with having her father released back home without having a thorough revision of his medication what happened with him in [place]. She reports that after he came from [place] he has been extremely anxious and also depressed and she thinks that this is the reason he overdosed. She relates that given the amount of medications that her father took this time and overdose with suicidal intentions is very possible. Review of Systems Constitutional: DENIES: Diaphoretic episodes, Fatigue, Fever, Weight gain, Weight loss, Chills, Dizziness, Change in appetite, Night Sweats Endocrine: DENIES: Heat/cold intolerance, Polydipsia, Polyuria, Polyphagia Eyes: DENIES: Blurred vision, Diplopia, Eye inflammation, Eye pain, Vision loss , Photosensitivity, Double Vision Ears, nose, mouth, throat: DENIES: Tinnitus, Hearing loss, Vertigo, Nasal discharge, Oral lesions, Throat pain, Hoarseness, Ear Pain, Running Nose, Epistaxis, Sinus Pain, Toothache, Odynophagia Respiratory: DENIES: Apneas, Cough, Snoring, Wheezing, Hemoptysis, Sputum production, Shortness of breath Cardiovascular: DENIES: Chest pain, Palpitations, Syncope, Dyspnea on Exertion , PND, Lower Extremity Edema, Orthopnea, Claudication Gastrointestinal: DENIES: Abdominal pain, Black stools, Bloody stools, Constipation, Diarrhea, Nausea, Vomiting, Difficulty Swallowing, Anorexia Genitourinary: DENIES: Sexual dysfunction, Urinary frequency, Urinary incontinence, Urgency, Hematuria, Dysuria, Nocturia, Penile Discharge, Testicular Pain, Testicular Swelling Musculoskeletal: DENIES: Joint pain, Muscle aches, Stiffness, Joint Swelling, Back pain, Neck pain Integumentary: DENIES: Abnormal pigmentation, Nail changes, Pruritus, Rash Hematologic/lymphatic: DENIES: Bruising, Lymphadenopathy Immunologic/allergic: DENIES: Eczema, Urticaria Psychiatric: COMPLAINS OF: Anxiety, Depression, DENIES: Confusion, Mood changes , Hallucinations, Agitation, Homicidal Ideation, Delusions Past Family Social History Coded Allergies: No Known Allergies (Verified , 10/17/10) Reported Medications Escitalopram (Lexapro) 20 Mg Tab, 20 MG PO DAILY, #30 TAB 0 Refills 12/15/17 Glipizide (Glipizide) 10 Mg Tab, 10 MG PO DAILY for Blood Sugar Management, #30 TAB 0 Refills Take 30 minutes before a meal 12/15/17 Amlodipine (Amlodipine) 10 Mg Tab, 10 MG PO DAILY for Blood Pressure Management , #30 TAB 0 Refills 12/15/17 Quetiapine (Seroquel) 200 Mg Tab, 200 MG PO DAILY, #30 TAB 0 Refills 12/15/17 Current Medications Medications (Trade) Dose Ordered Sig/Abbe Route Start Time Stop Time Status Last Admin (NS Flush) 2 ml UNSCH PRN IV FLUSH 12/15/17 18:45 (NS Flush) 2 ml BID IV FLUSH 12/15/17 21:00 12/17/17 08:49 (Tylenol) 650 mg Q6H PRN PO 12/15/17 18:45 12/17/17 02:13 (Pepcid Inj) 20 mg Q12HR IV PUSH 12/15/17 21:00 12/17/17 08:49 (Zofran Inj) 4 mg Q6H PRN IV PUSH 12/15/17 18:45 12/17/17 02:05 (Heparin Inj) 5,000 units Q8H SQ 12/15/17 18:45 12/17/17 10:45 Miscellaneous Information 1 Q361D XX 12/15/17 18:45 (Chlorhexidine 2% Cloth) 3 pack Taper DAILY@04 TOP 12/16/17 04:00 12/12/18 03:59 12/17/17 05:33 (Chlorhexidine 2% Cloth) 3 pack UNSCH PRN TOP 12/15/17 18:45 (Bridget-Colace) 1 tab BID PO 12/15/17 21:00 12/17/17 08:49 (Milk Of Magnesia Liq) 30 ml Q12H PRN PO 12/15/17 18:45 (Senokot) 17.2 mg Q12H PRN PO 12/15/17 18:45 (Dulcolax Supp) 10 mg DAILY PRN RECTAL 12/15/17 18:45 (Lactulose Liq) 30 ml DAILY PRN PO 12/15/17 18:45 (Peridex 0.12% Liq) 15 ml BID@08,20 MT 12/15/17 20:00 12/16/17 08:26 (D50w (Vial) Inj) 50 ml UNSCH PRN IV PUSH 12/16/17 08:30 (Glucagon Inj) 1 mg UNSCH PRN OTHER 12/16/17 08:30 (NovoLIN R SUPPLEMENTAL SCALE) 1 Q6H SQ 12/16/17 08:30 12/17/17 08:30 (Duoneb Neb) 1 ampule Q4HR NEB NEB 12/16/17 12:00 12/17/17 13:40 (Duoneb Neb) 1 ampule Q2HR NEB PRN NEB 12/16/17 10:45 (Cardizem) 60 mg Q6H PO 12/16/17 16:00 12/17/17 10:44 Family Psych History No family psychiatric Social History Patient was born and raised in [place], he lives in [place] with her family, 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 2) Employed, good family support, outpatient psychiatric care Physical Exam No tremors, no EPS, no withdrawal symptoms, no psychomotor retardation or agitation Vital Signs Vital Signs Date Time Temp Pulse Resp B/P (MAP) Pulse Ox O2 Delivery O2 Flow Rate FiO2 12/17/17 12:00 112 12/17/17 08:09 94 Nasal Cannula 2.00 12/17/17 08:00 98.3 18 133/80 (97) 12/16/17 12:32 36 40 I/O 12/17/17 12/17/17 12/18/17 08:00 16:00 00:00 Intake Total 240 ml Balance 240 ml Lab Results Test 12/17/17 07:09 White Blood Count 9.5 TH/MM3 Red Blood Count 4.84 MIL/MM3 Hemoglobin 13.5 GM/DL Hematocrit 40.1 % Mean Corpuscular Volume 82.9 FL Mean Corpuscular Hemoglobin 27.9 PG Mean Corpuscular Hemoglobin Concent 33.6 % Red Cell Distribution Width 15.4 % Platelet Count 183 TH/MM3 Mean Platelet Volume 10.0 FL Neutrophils (%) (Auto) 83.3 % Lymphocytes (%) (Auto) 9.3 % Monocytes (%) (Auto) 6.8 % Eosinophils (%) (Auto) 0.3 % Basophils (%) (Auto) 0.3 % Neutrophils # (Auto) 7.9 TH/MM3 Lymphocytes # (Auto) 0.9 TH/MM3 Monocytes # (Auto) 0.6 TH/MM3 Eosinophils # (Auto) 0.0 TH/MM3 Basophils # (Auto) 0.0 TH/MM3 CBC Comment DIFF FINAL Differential Comment Blood Urea Nitrogen 13 MG/DL Creatinine 1.38 MG/DL Random Glucose 94 MG/DL Calcium Level 8.4 MG/DL Sodium Level 146 MEQ/L Potassium Level 3.7 MEQ/L Chloride Level 109 MEQ/L Carbon Dioxide Level 29.7 MEQ/L Anion Gap 7 MEQ/L Estimat Glomerular Filtration Rate 53 ML/MIN Date/Time Source Procedure Growth Status 12/16/17 05:20 Sputum Endotracheal Gram Stain - Final Resulted 12/16/17 05:20 Sputum Culture - Preliminary Staphylococcus Aureus Resulted 12/15/17 18:10 Urine Catheterized Urine Urine Culture - Final NO GROWTH IN 48 HOURS. Complete Mental Status Examination Appearance: Appropriate Consciousness: Alert Orientation: x4 Motor Activity: Normal gait Speech: Unremarkable Language: Adequate Fund of Knowledge: Adequate Attention and Concentration: Adequate Memory: Unremarkable Mood: Appropriate, Sad Affect: Sad Thought Content: Appropriate Hallucination Type: None Delusion Type: None Suicidal Ideation: No Suicidal Plan: No Suicidal Intention: No Homicidal Ideation: No Homicidal Plan: No Homicidal Intention: No Insight: Poor Judgment: Poor Assessment & Plan Problem List: (1) Major depressive disorder, recurrent ICD Codes: F33.9 - Major depressive disorder, recurrent, unspecified Assessment & Plan: On psychiatric evaluation the patient presents calm, cooperative, he reports that he has been very overwhelmed and anxious in the last 2 weeks to the point that he overdosed with Seroquel with intentions "of going to a sleep". The patient reports that he was in a trip to [place] about 3 weeks ago, the trip was supposed to be for 8 weeks, but he had to come back to the [place] in 1 week due to the level of anxiety. After he came from [place] he visited the ER once due to the anxiety and finally he overdosed with Seroquel. As per patient he has been quite overwhelmed due to "issues in my job " and also due to family conflicts. At this moment the patient denies suicidal enemas ideation, he denies visual and auditory hallucinations. He seems to be logical, coherent and relevant. However, this is a patient with history of depression and an overdose 8 years ago. His daughter, use as collateral information, says that she is very concerned about her father safety, especially with this last suicidal attempt for which he took "a quite concerning amount of medication, over 30 pills, and I know that something is going on in his job that he is not talking about". The patient has an elevated risk of danger to self, he seems to be suffering of a very bad anxiety and depression at the moment, he will be admitted in psychiatry for stabilization and safety. On going to start a low dose of clonazepam to help with anxiety, 0.5 mg 3 times daily. I will restart his Celexa 10 mg. Patient will be transferred to psychiatry once medically stable Assessment & Plan Estimated LOS: Balta Grimm MD Dec 17, 2017 14:32
[2017-12-17] MEDS ORDERED: SIMETHICONE 125 MG CHEWABLE TAB CHEW PRN (14:45)
--- NOTE | 2017-12-17 17:17 | HHI.DS ---
Discharge Summary Admission Date Dec 15, 2017 at 18:05 Discharge Date: Dec 17, 2017 Admitting Diagnosis Altered mental status, respiratory failure, intentional overdose on Seroquel Brief History 57-year-old male was brought to the emergency room by EMS after a possible overdose with numerous Seroquel pills. His daughter found him unresponsive at home. She had last seen him at 9:30 in the morning when he went out for a job interview. She came home at 2:30 PM and found him unarousable. She thought he was sleeping. At 330 she tried to wake him up and he was not waking up. She has also noticed an empty bottle of Seroquel. The pill bottle was filled yesterday with 3 month supply and it was empty. No known vomiting. Patient was GCS of 8 on route. He was tachycardic upon arrival with GCS of 8. Patient obviously was unable to give any meaningful history. As per the daughter he has overdosed 8 years ago. Due to borderline GCS,, tachypnea and a high risk of an aspiration without ability to protect and airway, he was intubated in the emergency department by ED attending. CBC/BMP: 12/17/17 0709 12/17/17 0709 Significant Findings Laboratory Tests Test 12/15/17 17:00 12/15/17 17:07 12/15/17 18:10 12/15/17 21:00 Neutrophils (%) (Auto) 77.6 % (16.0-70.0) Random Glucose 148 MG/DL (74-106) Aspartate Amino Transf (AST/SGOT) 68 U/L (15-37) Estimat Glomerular Filtration Rate 61 ML/MIN (>89) Troponin I LESS THAN 0.02 NG/ML Salicylates Level LESS THAN 1.7 MG/DL Acetaminophen Level LESS THAN 2.0 MCG/ML Arterial Blood pH 7.35 (7.380-7.420) Arterial Blood Partial Pressure CO2 47 mmHg (38-42) Arterial Blood Partial Pressure O2 220 mmHG (61-120) Urine Protein 30 mg/dL (NEG-TRACE) Urine Ketones 10 mg/dL (NEG) Urine Bacteria RARE /hpf (NONE) Urine Mucus FEW /lpf (OCC) Test 12/16/17 03:51 12/16/17 10:12 12/17/17 07:09 Neutrophils (%) (Auto) 82.6 % (16.0-70.0) 83.3 % (16.0-70.0) Lymphocytes # (Auto) 0.8 TH/MM3 (1.0-4.8) 0.9 TH/MM3 (1.0-4.8) Total Protein 6.1 GM/DL (6.4-8.2) Chloride Level 108 MEQ/L (98-107) 109 MEQ/L (98-107) Estimat Glomerular Filtration Rate 58 ML/MIN (>89) 53 ML/MIN (>89) Blood Gas HCO3 27 mmol/L (22-26) Blood Gas Base Excess 2.4 mmol/L (-2-2) Arterial Blood Partial Pressure CO2 45 mmHg (38-42) Neutrophils # (Auto) 7.9 TH/MM3 (1.8-7.7) Creatinine 1.38 MG/DL (0.60-1.30) Calcium Level 8.4 MG/DL (8.5-10.1) Sodium Level 146 MEQ/L (136-145) Imaging Last Impressions Chest X-Ray 12/16/17 0000 Signed Impressions: Service Date/Time: Saturday, December 16, 2017 04:42 - CONCLUSION: 1. Stable exam. Mild basilar airspace disease. Endotracheal tube and nasogastric tube unchanged. Aydin Edmonds MD Head CT 12/15/17 1707 Signed Impressions: Service Date/Time: Friday, December 15, 2017 19:56 - CONCLUSION: No acute intracranial abnormality demonstrated. Right mastoiditis possible in the proper clinical setting. Ashwin Collado MD PE at Discharge GENERAL: Well-developed well-nourished obese male in no apparent distress SKIN: Warm and dry. HEAD: Atraumatic. Normocephalic. EYES: Pupils equal and round. No scleral icterus. No injection or drainage. ENT: No nasal bleeding or discharge. Mucous membranes pink and moist. NECK: Trachea midline. No JVD. CARDIOVASCULAR: Normal rate, regular rhythm. RESPIRATORY: No accessory muscle use. Clear to auscultation. Breath sounds equal bilaterally. GASTROINTESTINAL: Abdomen soft, non-tender, nondistended. No guarding. MUSCULOSKELETAL: Extremities without clubbing, cyanosis, or edema. No obvious deformities. NEUROLOGICAL: Awake and alert. RASS 0. No gross focal/sensory deficits. Follows commands in all 4 extremities. Hospital Course 57-year-old male was brought to the emergency room by EMS after a possible overdose with numerous Seroquel pills. His daughter found him unresponsive at home. She had last seen him at 9:30 in the morning when he went out for a job interview. She came home at 2:30 PM and found him unarousable. She thought he was sleeping. At 330 she tried to wake him up and he was not waking up. She has also noticed an empty bottle of Seroquel. The pill bottle was filled yesterday with 3 month supply and it was empty. No known vomiting. Patient was GCS of 8 on route. He was tachycardic upon arrival with GCS of 8. Patient obviously was unable to give any meaningful history. As per the daughter he has overdosed 8 years ago. Due to borderline GCS,, tachypnea and a high risk of an aspiration without ability to protect and airway, he was intubated in the emergency department by ED attending. 12/16 Patient is sedated with Diprivan and intubated. Afebrile. 12/17: Afebrile. Patient's was successfully extubated 10:30 AM yesterday. Patient normal sinus rhythm heart rate in the 90s he continues on Cardizem 60 mg every 6 hours. Patient saturation 99% on room air incentive spirometry encouraged currently at 1250 cc/breath. Patient past formal swallow evaluation was on a full liquid diet to be advanced to a heart healthy diet today. 12/17: The patient was Lemos acted after evaluation from psychiatry. Patient discharged to [facility] psych facility under the care of Dr. Soto Pt Condition on Discharge: Good Discharge Disposition: Disc to Psych Care Fac Discharge Instructions DIET: Follow Instructions for: As Tolerated, No Restrictions Activities you can perform: Regular-No Restrictions Velvet Salazar MD Dec 17, 2017 17:17
== END 2017-12-17 18:48 | DRG 917 ==
LOC: NEPC 16:45 → NEDA 18:05 → HIMN 20:10
PROVIDERS: ADMIT Internal Medicine Critical Care Medicine; ATTEND Internal Medicine Critical Care Medicine
PROC: 0BH17EZ Insertion of Endotracheal Airway into Trachea, Via Natural or Artificial Opening (ICD-10-PCS; principal; 2017-12-15)
PROC: 5A1935Z Respiratory Ventilation, Less than 24 Consecutive Hours (ICD-10-PCS; 2017-12-15)
DX: T43.592A Poisoning by other antipsychotics and neuroleptics, intentional self-harm, initial encounter (principal); J96.90 Respiratory failure, unspecified, unspecified whether with hypoxia or hypercapnia; F33.9 Major depressive disorder, recurrent, unspecified; R40.2431 Glasgow coma scale score 3-8, in the field [EMT or ambulance]; R00.0 Tachycardia, unspecified; I10 Essential (primary) hypertension; E11.9 Type 2 diabetes mellitus without complications; Z91.5 Personal history of self-harm
CPT/HCPCS: 31500; 36600; 43752; 51702; 70450; 71045; 80048; 80053; 80307; 81001; 82550; 82805; 82948; 83735; 84100; 84443; 84484; 85025; 85610; 85730; 86403; 87070; 87086; 87147; 87186; 87205; 87641; 93005; 94002; 94003; 94150; 94640; J0330; J1644; J2405; J7030

== ENCOUNTER 2017-12-17 18:54 | Inpatient (IN) | payer BC ==
[~2017-12-17 18:54] MED LIST changes: +AMLO10TA2 PO; -AUGM875 PO; -CLON1 PO; +GLIP10TA6 PO; -LEXA10TA PO; +LEXA20TA PO; +SERO200T PO
[2017-12-17] MEDS ORDERED: ACETAMINOPHEN 325 MG TAB PO PRN (20:45)
[2017-12-17] MEDS ORDERED: MAGNESIUM HYDROXIDE SUSP 30 ML CUP PO PRN (20:45)
[2017-12-17] MEDS ORDERED: DEXTROSE 50% IN WATER 50 ML VIAL(D50) IV PUSH PRN (20:45)
[2017-12-17] MEDS ORDERED: GLUCAGON 1 MG/ML VIAL OTHER PRN (20:45)
[2017-12-17] MEDS ORDERED: ALUMINUM/MAGNESIUM/SIMETH 30 ML CUP PO PRN (20:45)
[2017-12-17] MEDS ORDERED: NICOTINE 21 MG/24 HR PATCH T-DERMAL PRN (20:45)
[2017-12-17] MEDS ORDERED: INSULIN ASPART SUPPLEMENTAL SCALE SQ SCH (21:00)
[2017-12-17 22:59] VITALS: BP 153/88; PULSE 94; O2SAT 98
[2017-12-17] MEDS: DILTIAZEM HCL 60 MG TAB PO SCH (23:53)
[2017-12-18] MEDS: DILTIAZEM HCL 60 MG TAB PO SCH ×3 (06:32→17:44)
[2017-12-18 06:36] VITALS: BP 142/84; PULSE 98; RESP 17; TEMP 97.9; O2SAT 98
[2017-12-18 07:30] LABS: BICARBONATE 29.3 MEQ/L (21.0-32.0); BLOOD UREA NITROGEN 17 MG/DL (7-18); CALCIUM 8.7 MG/DL (8.5-10.1); CHLORIDE 107 MEQ/L (98-107); CHOLESTEROL 130 MG/DL (120-200); CREATININE 1.27 MG/DL (0.60-1.30); GLOMERULAR FILTRATION RATE 59 ML/MIN (>89); GLUCOSE,RANDOM 107 MG/DL (74-106); SODIUM (NA) 143 MEQ/L (136-145); TRIGLYCERIDES 134 MG/DL (42-150)
[2017-12-18 07:32] LABS: HDL CHOLESTEROL 37.1 MG/DL (40.0-60.0); LDL CHOLESTEROL 66 MG/DL (0-99)
--- NOTE | 2017-12-18 09:54 | PD.CONS ---
HPI Service [facility] Consult Requested By DR ANGELIKA MADRIGAL MD Reason for Consult MEDICAL MANAGEMENT- Primary Care Physician No Primary Care Physician Diagnoses: History of Present Illness Patient is a 57-year-old male who was initially brought to the emergency department by EMS on December 15 with a possible overdose with tumor Seroquel pills. I was found by his daughter unresponsive at home. He was last seen at 9:30 in the morning when he had a job interview. She found him at 2:30 PM arousable. Patient did not wake up well. She is on an empty bottle of Seroquel with a 3 month supply and it was empty. Patient was intubated and monitored in the ICU. And was extubated and cleared and transferred to inpatient psychiatry I believe yesterday. We have now been asked to help regarding medical management. Patient has a history of diabetes and hypertension. Will restart his home diabetic and blood pressure medication Review of Systems Constitutional: DENIES: Diaphoretic episodes, Fatigue, Fever, Weight gain, Weight loss, Chills, Dizziness, Change in appetite, Night Sweats Endocrine: DENIES: Heat/cold intolerance, Polydipsia, Polyuria, Polyphagia Eyes: DENIES: Blurred vision, Diplopia, Eye inflammation, Eye pain, Vision loss , Photosensitivity, Double Vision Ears, nose, mouth, throat: DENIES: Tinnitus, Hearing loss, Vertigo, Nasal discharge, Oral lesions, Throat pain, Hoarseness, Ear Pain, Running Nose, Epistaxis, Sinus Pain, Toothache, Odynophagia Respiratory: DENIES: Apneas, Cough, Snoring, Wheezing, Hemoptysis, Sputum production, Shortness of breath Cardiovascular: DENIES: Chest pain, Palpitations, Syncope, Dyspnea on Exertion , PND, Lower Extremity Edema, Orthopnea, Claudication Gastrointestinal: DENIES: Abdominal pain, Black stools, Bloody stools, Constipation, Diarrhea, Nausea, Vomiting, Difficulty Swallowing, Anorexia Genitourinary: DENIES: Sexual dysfunction, Urinary frequency, Urinary incontinence, Urgency, Hematuria, Dysuria, Nocturia, Penile Discharge, Testicular Pain, Testicular Swelling Musculoskeletal: DENIES: Joint pain, Muscle aches, Stiffness, Joint Swelling, Back pain, Neck pain Integumentary: DENIES: Abnormal pigmentation, Nail changes, Pruritus, Rash Hematologic/lymphatic: DENIES: Lymphadenopathy Immunologic/allergic: DENIES: Eczema, Urticaria Neurologic: DENIES: Abnormal gait, Headache, Localized weakness, Paresthesias, Seizures, Speech Problems, Tremor, Poor Balance Psychiatric: COMPLAINS OF: Anxiety, Mood changes, Depression, DENIES: Confusion , Hallucinations, Agitation, Suicidal Ideation, Homicidal Ideation, Delusions Except as stated in HPI: all other systems reviewed are Neg Past Family Social History Allergies: Coded Allergies: No Known Allergies (Verified , 10/17/10) Past Medical History Hypertension Diabetes mellitus type 2 Obesity Psychiatric issues Recent overdose of Seroquel Past Surgical History Hemorrhoidectomy Reported Medications Reported Meds & Active Scripts Active Reported Lexapro (Escitalopram Oxalate) 20 Mg Tab 20 Mg PO DAILY Glipizide 10 Mg Tab 10 Mg PO DAILY Take 30 minutes before a meal Amlodipine (Amlodipine Besylate) 10 Mg Tab 10 Mg PO DAILY Seroquel (Quetiapine Fumarate) 200 Mg Tab 200 Mg PO DAILY Active Ordered Medications Current Medications Acetaminophen (Tylenol) 650 mg Q4H PRN PO Pain 1-5 or Temp >101F Last administered on 12/17/17at 23:57; Start 12/17/17 at 20:45 Magnesium Hydroxide (Milk Of Magnesia Liq) 30 ml DAILY PRN PO CONSTIPATION; Start 12/17/17 at 20:45 Al Hydrox/Mg Hydrox/Simethicone (Mag-Al Plus Susp Liq) 30 ml Q6H PRN PO DYSPEPSIA; Start 12/17/17 at 20:45 Nicotine (Habitrol 21 Mg Patch.24 Hr) 1 patch DAILY PRN T-DERMAL nicotine craving; Start 12/17/17 at 20:45 Diltiazem HCl (Cardizem) 60 mg Q6HR PO Last administered on 12/18/17at 06:32; Start 12/18/17 at 00:00 Dextrose (D50w (Vial) Inj) 50 ml UNSCH PRN IV PUSH HYPOGLYCEMIA-SEE COMMENTS; Start 12/17/17 at 20:45; Stop 12/17/17 at 20:45; Status DC Glucagon (Glucagon Inj) 1 mg UNSCH PRN OTHER HYPOGLYCEMIA-SEE COMMENTS; Start 12/17/17 at 20:45; Stop 12/17/17 at 20:45; Status DC Insulin Aspart (NovoLOG SUPPLEMENTAL SCALE) 1 ACHS SLIDING SCALE SQ ; Start at 21:00; Stop 12/17/17 at 21:00; Status DC Family History Diabetes and hypertension Social History Denies any tobacco, alcohol, or illicits Physical Exam Vital Signs Vital Signs Date Time Temp Pulse Resp B/P (MAP) Pulse Ox O2 Delivery O2 Flow Rate FiO2 12/18/17 06:36 97.9 98 17 142/84 (103) 98 12/17/17 22:59 94 153/88 (109) 98 Physical Exam GENERAL: This is a well-nourished, well-developed patient, in no apparent distress. SKIN: No rashes, ecchymoses or lesions. Cool and dry. HEAD: Atraumatic. Normocephalic. No temporal or scalp tenderness. EYES: Pupils equal round and reactive. Extraocular motions intact. No scleral icterus. No injection or drainage. ENT: Nose without bleeding, purulent drainage or septal hematoma. Throat without erythema, tonsillar hypertrophy or exudate. Uvula midline. Airway patent. NECK: Trachea midline. No JVD or lymphadenopathy. Supple, nontender, no meningeal signs. CARDIOVASCULAR: Regular rate and rhythm without murmurs, gallops, or rubs. S1- S2 no S3 or S4 RESPIRATORY: Clear to auscultation. Breath sounds equal bilaterally. No wheezes , rales, or rhonchi. GASTROINTESTINAL: Abdomen soft, non-tender, nondistended. No hepato-splenomegaly , or palpable masses. No guarding. MUSCULOSKELETAL: Extremities without clubbing, cyanosis, or edema. No joint tenderness, effusion, or edema noted. No calf tenderness. Negative Homans sign bilaterally. NEUROLOGICAL: Awake and alert. Cranial nerves II through XII intact. Motor and sensory grossly within normal limits. Five out of 5 muscle strength in all muscle groups. Normal speech. Insight and judgment is good, mood and behavior is somewhat appropriate Laboratory Laboratory Tests Test 12/18/17 06:24 Blood Urea Nitrogen 17 Creatinine 1.27 Random Glucose 107 Calcium Level 8.7 Sodium Level 143 Potassium Level 4.0 Chloride Level 107 Carbon Dioxide Level 29.3 Anion Gap 7 Estimat Glomerular Filtration Rate 59 Triglycerides Level 134 Cholesterol Level 130 LDL Cholesterol 66 HDL Cholesterol 37.1 Cholesterol/HDL Ratio 3.50 Result Diagram: 12/18/17 0624 Assessment and Plan Assessment and Plan Recent overdose with Seroquel status post extubation and ICU stay Currently Lemos acted Diabetes mellitus continue on his Glucotrol and sliding scale coverage before meals and at bedtime with low-dose insulin Hypertension resume his home medications Depression and anxiety will defer to psychiatry Code Status Full code Discussed Condition With RN and patient Chart has also been reviewed Ricky Aponte DO Dec 18, 2017 09:54
[2017-12-18] MEDS ORDERED: DEXTROSE 50% IN WATER 50 ML VIAL(D50) IV PUSH PRN (10:00)
[2017-12-18] MEDS: glipiZIDE 10 MG TAB PO SCH (10:00)
[2017-12-18] MEDS ORDERED: GLUCAGON 1 MG/ML VIAL OTHER PRN (10:00)
[2017-12-18] MEDS: INSULIN ASPART SUPPLEMENTAL SCALE SQ SCH ×3 (11:19→20:43)
[2017-12-18] MEDS ORDERED: ESCITALOPRAM OXALATE 20 MG TAB PO SCH (11:45)
--- NOTE | 2017-12-18 11:59 | HHI.HP ---
Provisional Diagnosis Admission Date Dec 17, 2017 at 18:54 [place] I. MDD, recurrent, severe, without psychosis, CHET [place] II. Deferred Certification of Person's Competence To Provide Express and Informed Consent I have personally examined Ashwin Archuleta , a person being served at [facility] on, Dec 18, 2017 11:49. Express and informed consent means consent voluntarily given in writing, by a competent person, after sufficient explanation and disclosure of the subject matter involved to enable the person to make a knowing and willful decision without any element of force, fraud, deceit, duress, or other form of constraint or coercion. This person is 18 years of age or older, is not now known to be incompetent to consent to treatment with a guardian advocate, and does not have a health care surrogate or proxy currently making medical treatment decisions. I have found this person to be one of the following: [] Competent to provide express and informed consent, as defined above, for voluntary admission to this facility and is competent to provide express and informed consent for treatment. He/she has the consistent capacity to make well reasoned, willful, and knowing decisions concerning his or her medical or mental health treatment. The person fully and consistently understands the purpose of the admission for examination/placement and is fully capable of personally exercising all rights assured under [place] [] Incompetent to provide express and informed consent to voluntary admission, and this is incompetent to provide express and informed consent to treatment. The person must be transferred to involuntary status and a petition for a guardian advocate filed with the Circuit Court. [x] Refusing to provide express and informed consent to voluntary admission but is competent to provide express and informed consent for treatment. The person must be discharged or transferred to involuntary status. Form shall be completed within 24 hours of a person's arrival at the receiving facility and filed in the clinical record of each person: 1. Admitted on a voluntary basis 2. Permitted to provide express and informed consent to his/her own treatment 3. Allowed to transfer from involuntary to voluntary status 4. Prior to permitting a person to consent to his or her own treatment after having been previously found incompetent to consent to treatment. 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 Guajardo, he has medical history of hypertension and diabetes, who was brought to the emergency room by EMS after a possible overdose with numerous Seroquel pills. His daughter found him unresponsive at home. She had last seen him at 9:30 in the morning when he went out for a job interview. She came home at 2:30 PM and found him unarousable. She thought he was sleeping. At 330 she tried to wake him up and he was not waking up. She has also noticed an empty bottle of Seroquel. The pill bottle was filled yesterday with 3 month supply and it was empty. Due to borderline GCS, tachypnea and a high risk of an aspiration without ability to protect and airway, he was intubated in the emergency department by ED attending. Now extubated, with a stable parameters. Consulted to psychiatry to address suicidal attempt. EMR was reviewed. Collateral information from his daughter Tamiko Archuleta was obtained. On psychiatric evaluation I find a patient is calm, cooperative, anxious. The patient reports that in the last weeks he has been extremely stressed at home and at work. He says that about 2 weeks ago he departed to [place] in a mission of his job for 8 weeks, but due to the level of anxiety an "an episode of panic attack and nervous breakdown" he had to be taken to the ER in [place] he was sent back to the [place] a week later. After he came from [place] he has been very anxious, depressed. His 24 years old daughter got a car accident "and has been living at home since then and we had some stressful situations". Patient reports that 2 days ago he was just extremely depressed and anxious, wanted to go to sleep "for a while", and he took "a bunch of medications". He says that most poorly they were over 30 pills. Patient states that he did not was planning to . He expressed understanding about being low in emotions, feeling very distressed, overwhelmed , but he reports that he has too many reasons to live for, he wants to see his grandkids and complete his job. The patient reports that he has been compliant with his psychotropic "but they are not helping me with anxiety". He is now oriented 3, no fluctuation of consciousness, no attention deficit. He is logical, coherent and relevant. No paranoia, no loosening of associations, no selam, no delusions are present. The patient denies the use of illegal drugs and alcohol. I spoke with his daughter, who states that this is the second time that her father overdose in 8 years. She says that she does not feel safe with having her father released back home without having a thorough revision of his medication what happened with him in [place]. She reports that after he came from [place] he has been extremely anxious and also depressed and she thinks that this is the reason he overdosed. She relates that given the amount of medications that her father took this time and overdose with suicidal intentions is very possible. 11/23/2017 the patient was seen today for psychiatric reevaluation in the psychiatric unit. I have discussed this patient widely with nurse in charge also with counselor Kylah. Patient was calm, cooperative, pleasant. Reports feeling much better today. The patient was able to elaborate a little bit about what is going on with him in terms of anxiety. He says that he has been experiencing episodes of acute anxiety in which he really says that he is going to . He also says that he gets these intrusive thoughts of having a medical condition that is going to kill him. When he was in [place] he could not stop thinking that he was dying and nobody will be able to take care of him. Patient reports that he is very functional at work and at home, but he has always been a very anxious person. He describes his anxiety as a physical anxiety rather than a mental anxiety. Obviously, he has many real stressors at home and work, but he has always been able to manage them. At this moment he reports good appetite, good sleep, good motivation to get better, he denies suicidal enemas ideation, he denies visual and auditory hallucinations. I met with his daughter again today, I explained my plan of switching his medications and keeping the patient under observation until Thursday. Review of Systems Constitutional: DENIES: Diaphoretic episodes, Fatigue, Fever, Weight gain, Weight loss, Chills, Dizziness, Change in appetite, Night Sweats Endocrine: DENIES: Heat/cold intolerance, Polydipsia, Polyuria, Polyphagia Eyes: DENIES: Blurred vision, Diplopia, Eye inflammation, Eye pain, Vision loss , Photosensitivity, Double Vision Ears, nose, mouth, throat: DENIES: Tinnitus, Hearing loss, Vertigo, Nasal discharge, Oral lesions, Throat pain, Hoarseness, Ear Pain, Running Nose, Epistaxis, Sinus Pain, Toothache, Odynophagia Respiratory: DENIES: Apneas, Cough, Snoring, Wheezing, Hemoptysis, Sputum production, Shortness of breath Cardiovascular: DENIES: Chest pain, Palpitations, Syncope, Dyspnea on Exertion , PND, Lower Extremity Edema, Orthopnea, Claudication Gastrointestinal: DENIES: Abdominal pain, Black stools, Bloody stools, Constipation, Diarrhea, Nausea, Vomiting, Difficulty Swallowing, Anorexia Genitourinary: DENIES: Sexual dysfunction, Urinary frequency, Urinary incontinence, Urgency, Hematuria, Dysuria, Nocturia, Penile Discharge, Testicular Pain, Testicular Swelling Musculoskeletal: DENIES: Joint pain, Muscle aches, Stiffness, Joint Swelling, Back pain, Neck pain Hematologic/lymphatic: DENIES: Bruising, Lymphadenopathy Immunologic/allergic: DENIES: Eczema, Urticaria Neurologic: DENIES: Abnormal gait, Headache, Localized weakness, Paresthesias, Seizures, Speech Problems, Tremor, Poor Balance Psychiatric: COMPLAINS OF: Anxiety, DENIES: Confusion, Mood changes, Depression , Hallucinations, Agitation, Suicidal Ideation, Homicidal Ideation, Delusions Substance Abuse History Drugs/Alcohol past 12 months Patient denies substance abuse, alcohol and illegal drug Past Family Social History Coded Allergies: No Known Allergies (Verified , 10/17/10) Reported Medications Escitalopram (Lexapro) 20 Mg Tab, 20 MG PO DAILY, #30 TAB 0 Refills 12/15/17 Glipizide (Glipizide) 10 Mg Tab, 10 MG PO DAILY for Blood Sugar Management, #30 TAB 0 Refills Take 30 minutes before a meal 12/15/17 Amlodipine (Amlodipine) 10 Mg Tab, 10 MG PO DAILY for Blood Pressure Management , #30 TAB 0 Refills 12/15/17 Quetiapine (Seroquel) 200 Mg Tab, 200 MG PO DAILY, #30 TAB 0 Refills 12/15/17 Current Medications Medications (Trade) Dose Ordered Sig/Abbe Route Start Time Stop Time Status Last Admin (Tylenol) 650 mg Q4H PRN PO 12/17/17 20:45 12/17/17 23:57 (Milk Of Magnesia Liq) 30 ml DAILY PRN PO 12/17/17 20:45 (Mag-Al Plus Susp Liq) 30 ml Q6H PRN PO 12/17/17 20:45 (Habitrol 21 Mg Patch.24 Hr) 1 patch DAILY PRN T-DERMAL 12/17/17 20:45 (Cardizem) 60 mg Q6HR PO 12/18/17 00:00 12/18/17 06:32 (Norvasc) 10 mg DAILY PO 12/18/17 10:00 (Glucotrol) 10 mg DAILY PO 12/18/17 10:00 (D50w (Vial) Inj) 50 ml UNSCH PRN IV PUSH 12/18/17 10:00 (Glucagon Inj) 1 mg UNSCH PRN OTHER 12/18/17 10:00 (NovoLOG SUPPLEMENTAL SCALE) 1 ACHS SLIDING SCALE SQ 12/18/17 12:00 (KlonoPIN) 0.5 mg Q8HR PO 12/18/17 14:00 UNV (Lexapro) 20 mg DAILY PO 12/18/17 11:45 UNV (Desyrel) 100 mg HS PO 12/18/17 21:00 UNV Family Psych History No family psychiatric history Social History Patient was born and raised in [place], he lives in [place] with her family, 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 2) Good family support, outpatient psychiatric Physical Exam No tremors, no EPS, no stiffness, no gait disturbances Vital Signs Vital Signs Date Time Temp Pulse Resp B/P (MAP) Pulse Ox O2 Delivery O2 Flow Rate FiO2 12/18/17 06:36 97.9 98 17 142/84 (103) 98 I/O 12/18/17 12/18/17 12/19/17 08:00 16:00 00:00 Intake Total 240 ml 240 ml Balance 240 ml 240 ml Lab Results Test 12/18/17 06:24 Blood Urea Nitrogen 17 MG/DL Creatinine 1.27 MG/DL Random Glucose 107 MG/DL Calcium Level 8.7 MG/DL Sodium Level 143 MEQ/L Potassium Level 4.0 MEQ/L Chloride Level 107 MEQ/L Carbon Dioxide Level 29.3 MEQ/L Anion Gap 7 MEQ/L Estimat Glomerular Filtration Rate 59 ML/MIN Triglycerides Level 134 MG/DL Cholesterol Level 130 MG/DL LDL Cholesterol 66 MG/DL HDL Cholesterol 37.1 MG/DL Cholesterol/HDL Ratio 3.50 RATIO Mental Status Examination Appearance: Appropriate Consciousness: Alert Orientation: x4 Motor Activity: Normal gait Speech: Unremarkable Language: Adequate Fund of Knowledge: Adequate Attention and Concentration: Adequate Memory: Unremarkable Mood: Sad Affect: Irritable Thought Process & Associations: Intact Thought Content: Preoccupations, Obsessions, Compulsive Hallucination Type: None Delusion Type: None Suicidal Ideation: No Suicidal Plan: No Suicidal Intention: No Homicidal Ideation: No Homicidal Plan: No Homicidal Intention: No Insight: Fair Judgment: Impulsive Assessment & Plan Problem List: (1) Major depressive disorder, recurrent ICD Codes: F33.9 - Major depressive disorder, recurrent, unspecified Assessment & Plan: On psychiatric evaluation the patient presents calm, cooperative, he reports that he has been very overwhelmed and anxious in the last 2 weeks to the point that he overdosed with Seroquel with intentions "of going to a sleep". The patient reports that he was in a trip to [facility] about 3 weeks ago, the trip was supposed to be for 8 weeks, but he had to come back to the [facility] in 1 week due to the level of anxiety. After he came from [place] he visited the ER once due to the anxiety and finally he overdosed with Seroquel. As per patient he has been quite overwhelmed due to "issues in my job " and also due to family conflicts. At this moment the patient denies suicidal enemas ideation, he denies visual and auditory hallucinations. He seems to be logical, coherent and relevant. However, this is a patient with history of depression and an overdose 8 years ago. His daughter, use as collateral information, says that she is very concerned about her father safety, especially with this last suicidal attempt for which he took "a quite concerning amount of medication, over 30 pills, and I know that something is going on in his job that he is not talking about". The patient has an elevated risk of danger to self, he seems to be suffering of a very bad anxiety and depression at the moment, he will be admitted in psychiatry for stabilization and safety. I am going to start a low dose of clonazepam to help with anxiety, 0.5 mg 3 times daily. I will increase his Celexa to 20 mg. We will replace the Seroquel with Flexeril at 100 mg to help him to sleep. delivery sales worker intervention to help with counseling, individual therapy, to coordinate safe discharge including finding a new outpatient psychiatrist in the community. Assessment & Plan Estimated LOS: Balta Soto MD Dec 18, 2017 11:59
[2017-12-18] MEDS: clonazePAM 0.5 MG TAB PO SCH ×2 (12:59→20:45)
[2017-12-18] MEDS: ESCITALOPRAM OXALATE 20 MG TAB PO SCH (14:00)
[2017-12-18 16:10] LABS: HEMOGLOBIN A1C 5.3 % (4.3-6.0)
--- NOTE | 2017-12-18 16:33 | PD.PSY.CON ---
Provisional Diagnosis Admission Date Dec 17, 2017 at 18:54 [place] I. MDD, recurrent, severe, without psychosis, CHET [place] II. Deferred History of Present Illness Service Psychiatry Consult Requested By Dr. 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 Guajardo, he has medical history of hypertension and diabetes, who was brought to the emergency room by EMS after a possible overdose with numerous Seroquel pills. His daughter found him unresponsive at home. She had last seen him at 9:30 in the morning when he went out for a job interview. She came home at 2:30 PM and found him unarousable. She thought he was sleeping. At 330 she tried to wake him up and he was not waking up. She has also noticed an empty bottle of Seroquel. The pill bottle was filled yesterday with 3 month supply and it was empty. Due to borderline GCS, tachypnea and a high risk of an aspiration without ability to protect and airway, he was intubated in the emergency department by ED attending. Now extubated, with a stable parameters. Consulted to psychiatry to address suicidal attempt. EMR was reviewed. Collateral information from his daughter Tamiko Archuleta was obtained. On psychiatric evaluation I find a patient is calm, cooperative, anxious. The patient reports that in the last weeks he has been extremely stressed at home and at work. He says that about 2 weeks ago he departed to [place] in a mission of his job for 8 weeks, but due to the level of anxiety an "an episode of panic attack and nervous breakdown" he had to be taken to the ER in [place] he was sent back [place] the [place] a [place] later. After he came from [place] he has been very anxious, depressed. His 24 years old daughter got a car accident "and has been living at home since then and we had some stressful situations". Patient reports that 2 days ago he was just extremely depressed and anxious, wanted to go to sleep "for a while", and he took "a bunch of medications". He says that most poorly they were over 30 pills. Patient states that he did not was planning to . He expressed understanding about being low in emotions, feeling very distressed, overwhelmed , but he reports that he has too many reasons to live for, he wants to see his grandkids and complete his job. The patient reports that he has been compliant with his psychotropic "but they are not helping me with anxiety". He is now oriented 3, no fluctuation of consciousness, no attention deficit. He is logical, coherent and relevant. No paranoia, no loosening of associations, no selam, no delusions are present. The patient denies the use of illegal drugs and alcohol. I spoke with his daughter, who states that this is the second time that her father overdose in 8 years. She says that she does not feel safe with having her father released back home without having a thorough revision of his medication what happened with him in [place]. She reports that after he came from [place] he has been extremely anxious and also depressed and she thinks that this is the reason he overdosed. She relates that given the amount of medications that her father took this time and overdose with suicidal intentions is very possible. 11/23/2017 the patient was seen today for psychiatric reevaluation in the psychiatric unit. I have discussed this patient widely with nurse in charge also with counselor Kylah. Patient was calm, cooperative, pleasant. Reports feeling much better today. The patient was able to elaborate a little bit about what is going on with him in terms of anxiety. He says that he has been experiencing episodes of acute anxiety in which he really says that he is going to . He also says that he gets these intrusive thoughts of having a medical condition that is going to kill him. When he was in [place] he could not stop thinking that he was dying and nobody will be able to take care of him. Patient reports that he is very functional at work and at home, but he has always been a very anxious person. He describes his anxiety as a physical anxiety rather than a mental anxiety. Obviously, he has many real stressors at home and work, but he has always been able to manage them. At this moment he reports good appetite, good sleep, good motivation to get better, he denies suicidal enemas ideation, he denies visual and auditory hallucinations. I met with his daughter again today, I explained my plan of switching his medications and keeping the patient under observation until Thursday. - Second opinion Patient seen for second opinion. 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 Patient was found sitting in room, calm and cooperative with interview. Patient states that he had overdosed on quetiapine in an attempt to try to sleep yet states having taken over 30 pills. When asked what he was expecting was going to happen he states he expected to go to sleep and denies wanting to end his life yet could not providing explanation to having taken over 30 tablets. He states having felt overwhelmed recently, mentioning having been hospitalized in [place]. He reports having had difficulty with sleep, appetite recently. Currently he states feeling anxious, denies SI/HI, AVH or delusions at this time. Past Family Social History Coded Allergies: No Known Allergies (Verified , 10/17/10) Reported Medications Escitalopram (Lexapro) 20 Mg Tab, 20 MG PO DAILY, #30 TAB 0 Refills 12/15/17 Glipizide (Glipizide) 10 Mg Tab, 10 MG PO DAILY for Blood Sugar Management, #30 TAB 0 Refills Take 30 minutes before a meal 12/15/17 Amlodipine (Amlodipine) 10 Mg Tab, 10 MG PO DAILY for Blood Pressure Management , #30 TAB 0 Refills 12/15/17 Quetiapine (Seroquel) 200 Mg Tab, 200 MG PO DAILY, #30 TAB 0 Refills 12/15/17 Current Medications Medications (Trade) Dose Ordered Sig/Abbe Route Start Time Stop Time Status Last Admin (Tylenol) 650 mg Q4H PRN PO 12/17/17 20:45 12/17/17 23:57 (Milk Of Magnesia Liq) 30 ml DAILY PRN PO 12/17/17 20:45 (Mag-Al Plus Susp Liq) 30 ml Q6H PRN PO 12/17/17 20:45 (Habitrol 21 Mg Patch.24 Hr) 1 patch DAILY PRN T-DERMAL 12/17/17 20:45 (Cardizem) 60 mg Q6HR PO 12/18/17 00:00 12/18/17 12:00 (Norvasc) 10 mg DAILY PO 12/18/17 10:00 12/18/17 10:00 (Glucotrol) 10 mg DAILY PO 12/18/17 10:00 12/18/17 10:00 (D50w (Vial) Inj) 50 ml UNSCH PRN IV PUSH 12/18/17 10:00 (Glucagon Inj) 1 mg UNSCH PRN OTHER 12/18/17 10:00 (NovoLOG SUPPLEMENTAL SCALE) 1 ACHS SLIDING SCALE SQ 12/18/17 12:00 (KlonoPIN) 0.5 mg Q8HR PO 12/18/17 14:00 12/18/17 12:59 (Desyrel) 100 mg HS PO 12/18/17 21:00 (Lexapro) 20 mg DAILY PO 12/18/17 14:00 12/18/17 14:00 Patient's Strengths (min. 2) Good family support, outpatient psychiatric Physical Exam Vital Signs Vital Signs Date Time Temp Pulse Resp B/P (MAP) Pulse Ox O2 Delivery O2 Flow Rate FiO2 12/18/17 06:36 97.9 98 17 142/84 (103) 98 I/O 12/18/17 12/18/17 12/19/17 08:00 16:00 00:00 Intake Total 240 ml 480 ml Balance 240 ml 480 ml Lab Results Test 12/18/17 06:24 Blood Urea Nitrogen 17 MG/DL Creatinine 1.27 MG/DL Random Glucose 107 MG/DL Calcium Level 8.7 MG/DL Sodium Level 143 MEQ/L Potassium Level 4.0 MEQ/L Chloride Level 107 MEQ/L Carbon Dioxide Level 29.3 MEQ/L Anion Gap 7 MEQ/L Estimat Glomerular Filtration Rate 59 ML/MIN Hemoglobin A1c 5.3 % Triglycerides Level 134 MG/DL Cholesterol Level 130 MG/DL LDL Cholesterol 66 MG/DL HDL Cholesterol 37.1 MG/DL Cholesterol/HDL Ratio 3.50 RATIO Mental Status Examination Appearance: Appropriate Consciousness: Alert Orientation: x4 Motor Activity: Normal gait Speech: Unremarkable Language: Adequate Fund of Knowledge: Adequate Attention and Concentration: Adequate Memory: Unremarkable Mood: Sad, Anxious Affect: Sad Thought Process & Associations: Intact Thought Content: Preoccupations, Obsessions, Compulsive Hallucination Type: None Delusion Type: None Suicidal Ideation: No Suicidal Plan: No Suicidal Intention: No Homicidal Ideation: No Homicidal Plan: No Homicidal Intention: No Insight: Fair Judgment: Impulsive Assessment & Plan Problem List: (1) Major depressive disorder, recurrent ICD Codes: F33.9 - Major depressive disorder, recurrent, unspecified Assessment & Plan I have seen and examined this patient, reviewed the documentation, discussed personally with Dr. Soto, and I agree and concur with his assessment and plan. Consult appreciated. Manny Mckeon MD Dec 18, 2017 16:33
[2017-12-18 18:04] VITALS: BP 127/66; PULSE 98; RESP 16; TEMP 97.4; O2SAT 96
[2017-12-18] MEDS: traZODone HCL 100 MG TAB PO SCH (20:45)
[2017-12-19] VITALS: BP 158/74; PULSE 99
[2017-12-19] MEDS: DILTIAZEM HCL 60 MG TAB PO SCH ×5 (00:49→23:27)
[2017-12-19 06:05] VITALS: BP 156/89; PULSE 97; RESP 16; TEMP 98.3; O2SAT 96
[2017-12-19] MEDS: clonazePAM 0.5 MG TAB PO SCH (06:36)
[2017-12-19] MEDS: INSULIN ASPART SUPPLEMENTAL SCALE SQ SCH ×4 (08:00→20:15)
[2017-12-19 08:43] LABS: AUTOMATED NEUTROPHIL # 8.1 TH/MM3 (1.8-7.7); BASOPHIL % 0.4 % (0.0-2.0); EOSINOPHIL # 0.2 TH/MM3 (0-0.4); EOSINOPHIL % 2.1 % (0.0-4.0); HEMATOCRIT 42.2 % (39.0-51.0); HEMOGLOBIN 14.1 GM/DL (13.0-17.0); LYMPH % 8.6 % (9.0-44.0); LYMPHOCYTE # 0.9 TH/MM3 (1.0-4.8); MEAN CELL VOLUME 83.3 FL (80.0-100.0); MEAN CORPUSCULAR HEMOGLOBIN 27.8 PG (27.0-34.0); MEAN CORPUSCULAR HGB CONC 33.3 % (32.0-36.0); MEAN PLATELET VOLUME 9.5 FL (7.0-11.0); MONO % 7.7 % (0.0-8.0); MONOCYTE # 0.8 TH/MM3 (0-0.9); NEUT % 81.2 % (16.0-70.0); PLATELET COUNT 235 TH/MM3 (150-450); RED BLOOD COUNT 5.06 MIL/MM3 (4.50-5.90); RED CELL DISTRIBUTION WIDTH 15.1 % (11.6-17.2)
[2017-12-19] MEDS: ESCITALOPRAM OXALATE 20 MG TAB PO SCH (09:12)
[2017-12-19] MEDS: glipiZIDE 10 MG TAB PO SCH (09:12)
[2017-12-19 09:36] LABS: ALBUMIN 3.3 GM/DL (3.4-5.0); ALKALINE PHOSPHATASE 84 U/L (45-117); ALT (GPT) 43 U/L (12-78); AST (GOT) 27 U/L (15-37); BICARBONATE 29.9 MEQ/L (21.0-32.0); BLOOD UREA NITROGEN 17 MG/DL (7-18); CALCIUM 8.6 MG/DL (8.5-10.1); CHLORIDE 107 MEQ/L (98-107); CREATININE 1.21 MG/DL (0.60-1.30); FREE T4 1.16 NG/DL (0.76-1.46); GLOMERULAR FILTRATION RATE 62 ML/MIN (>89); GLUCOSE,RANDOM 125 MG/DL (74-106); MAGNESIUM 2.2 MG/DL (1.5-2.5); PHOSPHORUS 2.4 MG/DL (2.5-4.9); SODIUM (NA) 143 MEQ/L (136-145); TOTAL BILIRUBIN ADULT 0.6 MG/DL (0.2-1.0); TOTAL PROTEIN 6.6 GM/DL (6.4-8.2)
--- NOTE | 2017-12-19 10:34 | HHI.PR ---
Subjective Remarks Patient is a 57-year-old male who was initially brought to the emergency department by EMS on December 15 with a possible overdose with tumor Seroquel pills. I was found by his daughter unresponsive at home. He was last seen at 9:30 in the morning when he had a job interview. She found him at 2:30 PM arousable. Patient did not wake up well. She is on an empty bottle of Seroquel with a 3 month supply and it was empty. Patient was intubated and monitored in the ICU. And was extubated and cleared and transferred to inpatient psychiatry I believe yesterday. We have now been asked to help regarding medical management. Patient has a history of diabetes and hypertension. Will restart his home diabetic and blood pressure medication 12-19 patient's blood sugars remain stable Had a slightly low blood sugar last night Recommend that patient have a snack before bedtime Discussed with RN and patient Medications adjusted by psychiatry Objective Vitals Vital Signs Date Time Temp Pulse Resp B/P (MAP) Pulse Ox O2 Delivery O2 Flow Rate FiO2 12/19/17 06:05 98.3 97 16 156/89 (111) 96 12/19/17 00:00 99 158/74 (102) 12/18/17 18:04 97.4 98 16 127/66 (86) 96 I/O 12/18/17 12/18/17 12/18/17 12/19/17 12/19/17 12/19/17 06:59 14:59 22:59 06:59 14:59 22:59 Intake Total 240 ml 480 ml 720 ml 0 ml 360 ml Balance 240 ml 480 ml 720 ml 0 ml 360 ml Intake Oral 240 ml 480 ml 720 ml 0 ml 360 ml # Voids 2 1 0 Result Diagram: 12/19/17 0815 12/19/17 0815 Other Results Laboratory Tests Test 12/18/17 06:24 12/19/17 08:15 Blood Urea Nitrogen 17 MG/DL 17 MG/DL Creatinine 1.27 MG/DL 1.21 MG/DL Random Glucose 107 MG/DL 125 MG/DL Calcium Level 8.7 MG/DL 8.6 MG/DL Sodium Level 143 MEQ/L 143 MEQ/L Potassium Level 4.0 MEQ/L 4.1 MEQ/L Chloride Level 107 MEQ/L 107 MEQ/L Carbon Dioxide Level 29.3 MEQ/L 29.9 MEQ/L Anion Gap 7 MEQ/L 6 MEQ/L Estimat Glomerular Filtration Rate 59 ML/MIN 62 ML/MIN Hemoglobin A1c 5.3 % Triglycerides Level 134 MG/DL Cholesterol Level 130 MG/DL LDL Cholesterol 66 MG/DL HDL Cholesterol 37.1 MG/DL Cholesterol/HDL Ratio 3.50 RATIO White Blood Count 10.0 TH/MM3 Red Blood Count 5.06 MIL/MM3 Hemoglobin 14.1 GM/DL Hematocrit 42.2 % Mean Corpuscular Volume 83.3 FL Mean Corpuscular Hemoglobin 27.8 PG Mean Corpuscular Hemoglobin Concent 33.3 % Red Cell Distribution Width 15.1 % Platelet Count 235 TH/MM3 Mean Platelet Volume 9.5 FL Neutrophils (%) (Auto) 81.2 % Lymphocytes (%) (Auto) 8.6 % Monocytes (%) (Auto) 7.7 % Eosinophils (%) (Auto) 2.1 % Basophils (%) (Auto) 0.4 % Neutrophils # (Auto) 8.1 TH/MM3 Lymphocytes # (Auto) 0.9 TH/MM3 Monocytes # (Auto) 0.8 TH/MM3 Eosinophils # (Auto) 0.2 TH/MM3 Basophils # (Auto) 0.0 TH/MM3 CBC Comment DIFF FINAL Differential Comment Total Protein 6.6 GM/DL Albumin 3.3 GM/DL Phosphorus Level 2.4 MG/DL Magnesium Level 2.2 MG/DL Alkaline Phosphatase 84 U/L Aspartate Amino Transf (AST/SGOT) 27 U/L Alanine Aminotransferase (ALT/SGPT) 43 U/L Total Bilirubin 0.6 MG/DL Free Thyroxine 1.16 NG/DL Thyroid Stimulating Hormone 3rd Gen 1.170 uIU/ML Objective Remarks GENERAL: Awake alert and oriented 3 talkative and cooperative SKIN: Warm and dry. HEAD: Atraumatic. Normocephalic. EYES: Pupils equal and round. No scleral icterus. No injection or drainage. Extraocular muscles intact ENT: No nasal bleeding or discharge. Mucous membranes pink and moist. Tongue is midline NECK: Trachea midline. No JVD. CARDIOVASCULAR: Regular rate and rhythm. S1-S2 no S3 or S4 RESPIRATORY: No accessory muscle use. Clear to auscultation. Breath sounds equal bilaterally. GASTROINTESTINAL: Abdomen soft, non-tender, nondistended. Hepatic and splenic margins not palpable. MUSCULOSKELETAL: Extremities without clubbing, cyanosis, or edema. No obvious deformities. NEUROLOGICAL: Awake and alert. No obvious cranial nerve deficits. Motor grossly within normal limits. Five out of 5 muscle strength in the arms and legs. Normal speech. PSYCHIATRIC: Appropriate mood and affect; insight and judgment ABnormal. Procedures None Medications and IVs Current Medications Acetaminophen (Tylenol) 650 mg Q4H PRN PO Pain 1-5 or Temp >101F Last administered on 12/17/17at 23:57; Start 12/17/17 at 20:45 Magnesium Hydroxide (Milk Of Magnesia Liq) 30 ml DAILY PRN PO CONSTIPATION; Start 12/17/17 at 20:45 Al Hydrox/Mg Hydrox/Simethicone (Mag-Al Plus Susp Liq) 30 ml Q6H PRN PO DYSPEPSIA; Start 12/17/17 at 20:45 Nicotine (Habitrol 21 Mg Patch.24 Hr) 1 patch DAILY PRN T-DERMAL nicotine craving; Start 12/17/17 at 20:45 Diltiazem HCl (Cardizem) 60 mg Q6HR PO Last administered on 12/19/17at 06:36; Start 12/18/17 at 00:00 Dextrose (D50w (Vial) Inj) 50 ml UNSCH PRN IV PUSH HYPOGLYCEMIA-SEE COMMENTS; Start 12/17/17 at 20:45; Stop 12/17/17 at 20:45; Status DC Glucagon (Glucagon Inj) 1 mg UNSCH PRN OTHER HYPOGLYCEMIA-SEE COMMENTS; Start 12/17/17 at 20:45; Stop 12/17/17 at 20:45; Status DC Insulin Aspart (NovoLOG SUPPLEMENTAL SCALE) 1 ACHS SLIDING SCALE SQ ; Start at 21:00; Stop 12/17/17 at 21:00; Status DC Amlodipine Besylate (Norvasc) 10 mg DAILY PO Last administered on 12/19/17at 09: 12; Start 12/18/17 at 10:00 Glipizide (Glucotrol) 10 mg DAILY PO Last administered on 12/19/17at 09:12; Start 12/18/17 at 10:00 Dextrose (D50w (Vial) Inj) 50 ml UNSCH PRN IV PUSH HYPOGLYCEMIA-SEE COMMENTS; Start 12/18/17 at 10:00 Glucagon (Glucagon Inj) 1 mg UNSCH PRN OTHER HYPOGLYCEMIA-SEE COMMENTS; Start 12/18/17 at 10:00 Insulin Aspart (NovoLOG SUPPLEMENTAL SCALE) 1 ACHS SLIDING SCALE SQ ; Start at 12:00 Clonazepam (KlonoPIN) 0.5 mg Q8HR PO Last administered on 12/19/17at 06:36; Start 12/18/17 at 14:00 Escitalopram Oxalate (Lexapro) 20 mg DAILY PO ; Start 12/18/17 at 11:45; Stop at 12:53; Status DC Trazodone HCl (Desyrel) 100 mg HS PO Last administered on 12/18/17at 20:45; Start 12/18/17 at 21:00 Escitalopram Oxalate (Lexapro) 20 mg DAILY PO Last administered on 12/19/17at 09 :12; Start 12/18/17 at 14:00 A/P Assessment and Plan Recent overdose with Seroquel status post extubation and ICU stay Currently Lemos acted Diabetes mellitus continue on his Glucotrol and sliding scale coverage before meals and at bedtime with low-dose insulin Hypertension resume his home medications Depression and anxiety will defer to psychiatry--they have already adjusted his medications Discharge Planning Pending psychiatric clearance Ricky Aponte DO Dec 19, 2017 10:34
[2017-12-19 10:49] LABS: HEMOGLOBIN A1C 5.3 % (4.3-6.0)
--- NOTE | 2017-12-19 12:10 | HHI.PYPN ---
Subjective Remarks The patient was seen today for psychiatric reevaluation. Patient reports feeling better, his mood is improved, he is still feeling anxious, having difficulty sleeping at night. Last night he woke up about 3-4 times. Continue to have intrusive thoughts "about everything". He denies suicidal and was ideation, he denies visual and auditory hallucinations. He has been compliant with his medications, no significant side effects reported Mental Status Examination Appearance: Appropriate Consciousness: Alert Orientation: x4 Motor Activity: Normal gait Speech: Unremarkable Language: Adequate Fund of Knowledge: Adequate Attention and Concentration: Adequate Memory: Unremarkable Mood: Sad, Anxious Affect: Sad Thought Process & Associations: Intact Thought Content: Preoccupations, Obsessions, Compulsive Hallucination Type: None Delusion Type: None Suicidal Ideation: No Suicidal Plan: No Suicidal Intention: No Homicidal Ideation: No Homicidal Plan: No Homicidal Intention: No Insight: Fair Judgment: Impulsive Results Labs Test 12/19/17 08:15 White Blood Count 10.0 TH/MM3 Red Blood Count 5.06 MIL/MM3 Hemoglobin 14.1 GM/DL Hematocrit 42.2 % Mean Corpuscular Volume 83.3 FL Mean Corpuscular Hemoglobin 27.8 PG Mean Corpuscular Hemoglobin Concent 33.3 % Red Cell Distribution Width 15.1 % Platelet Count 235 TH/MM3 Mean Platelet Volume 9.5 FL Neutrophils (%) (Auto) 81.2 % Lymphocytes (%) (Auto) 8.6 % Monocytes (%) (Auto) 7.7 % Eosinophils (%) (Auto) 2.1 % Basophils (%) (Auto) 0.4 % Neutrophils # (Auto) 8.1 TH/MM3 Lymphocytes # (Auto) 0.9 TH/MM3 Monocytes # (Auto) 0.8 TH/MM3 Eosinophils # (Auto) 0.2 TH/MM3 Basophils # (Auto) 0.0 TH/MM3 CBC Comment DIFF FINAL Differential Comment Blood Urea Nitrogen 17 MG/DL Creatinine 1.21 MG/DL Random Glucose 125 MG/DL Total Protein 6.6 GM/DL Albumin 3.3 GM/DL Calcium Level 8.6 MG/DL Phosphorus Level 2.4 MG/DL Magnesium Level 2.2 MG/DL Alkaline Phosphatase 84 U/L Aspartate Amino Transf (AST/SGOT) 27 U/L Alanine Aminotransferase (ALT/SGPT) 43 U/L Total Bilirubin 0.6 MG/DL Sodium Level 143 MEQ/L Potassium Level 4.1 MEQ/L Chloride Level 107 MEQ/L Carbon Dioxide Level 29.9 MEQ/L Anion Gap 6 MEQ/L Estimat Glomerular Filtration Rate 62 ML/MIN Hemoglobin A1c 5.3 % Free Thyroxine 1.16 NG/DL Thyroid Stimulating Hormone 3rd Gen 1.170 uIU/ML Vitals/IOs Vital Signs Date Time Temp Pulse Resp B/P (MAP) Pulse Ox O2 Delivery O2 Flow Rate FiO2 12/19/17 06:05 98.3 97 16 156/89 (111) 96 Intake and Output 12/19/17 12/19/17 12/20/17 08:00 16:00 00:00 Intake Total 0 ml 360 ml Balance 0 ml 360 ml Assessment & Plan Problem List: (1) Major depressive disorder, recurrent ICD Codes: F33.9 - Major depressive disorder, recurrent, unspecified Assessment & Plan: Will increase clonazepam to 1 mg at bedtime to help with sleep. Brief supportive psychotherapy provided. Assessment & Plan Estimated LOS: days Justification for Cont. Inpt. Patient has an elevated risk to decompensate at a lower level of care. Balta Soto MD Dec 19, 2017 12:10
[2017-12-19 18:31] VITALS: BP 149/85; PULSE 107; RESP 16; TEMP 98.3; O2SAT 97
[2017-12-19] MEDS: traZODone HCL 100 MG TAB PO SCH (20:15)
[2017-12-19] MEDS: clonazePAM 1 MG TAB PO SCH (20:15)
[2017-12-20] MEDS: DILTIAZEM HCL 60 MG TAB PO SCH ×3 (06:20→17:34)
[2017-12-20 07:24] VITALS: BP 150/89; PULSE 98; RESP 17; TEMP 99.4; O2SAT 95
[2017-12-20] MEDS: INSULIN ASPART SUPPLEMENTAL SCALE SQ SCH ×4 (08:00→21:00)
[2017-12-20] MEDS: clonazePAM 0.5 MG TAB PO SCH (08:47)
[2017-12-20] MEDS: ESCITALOPRAM OXALATE 20 MG TAB PO SCH (09:44)
[2017-12-20] MEDS: glipiZIDE 10 MG TAB PO SCH (09:44)
--- NOTE | 2017-12-20 11:22 | HHI.PR ---
Subjective Remarks Patient seen and examined this morning. Afebrile vital signs stable. He is awake alert and oriented. Denies any complaints or issues at this time. Objective Vitals Vital Signs Date Time Temp Pulse Resp B/P (MAP) Pulse Ox O2 Delivery O2 Flow Rate FiO2 12/20/17 07:24 99.4 98 17 150/89 (109) 95 12/19/17 18:31 98.3 107 16 149/85 (106) 97 I/O 12/19/17 12/19/17 12/19/17 12/20/17 12/20/17 12/20/17 07:00 15:00 23:00 07:00 15:00 23:00 Intake Total 0 ml 720 ml 1680 ml 0 ml Balance 0 ml 720 ml 1680 ml 0 ml Intake Oral 0 ml 720 ml 1680 ml 0 ml # Voids 0 1 1 Result Diagram: 12/19/1781412/19/17814 Objective Remarks GEN: Well-developed, well-nourished patient. No acute distress. CV: Regular rate and rhythm without obvious murmurs LUNGS: Clear to auscultation bilaterally. Normal respiratory effort. No wheezes , rales, rhonchi. GI: Soft, nontender, nondistended. No palpable masses. Bowel sounds WNL. EXT: No edema. NEURO/PSYCH: Afocal. Awake, alert, and oriented x3. Appropriate insight and judgment. Procedures None Medications and IVs Current Medications Medications (Trade) Dose Ordered Sig/Abbe Route Start Time Stop Time Status Last Admin (Tylenol) 650 mg Q4H PRN PO 12/17/17 20:45 12/17/17 23:57 (Milk Of Magnesia Liq) 30 ml DAILY PRN PO 12/17/17 20:45 (Mag-Al Plus Susp Liq) 30 ml Q6H PRN PO 12/17/17 20:45 (Habitrol 21 Mg Patch.24 Hr) 1 patch DAILY PRN T-DERMAL 12/17/17 20:45 (Cardizem) 60 mg Q6HR PO 12/18/17 00:00 12/20/17 06:20 (Norvasc) 10 mg DAILY PO 12/18/17 10:00 12/20/17 09:45 (Glucotrol) 10 mg DAILY PO 4/27/18 10:00 12/20/17 09:44 (D50w (Vial) Inj) 50 ml UNSCH PRN IV PUSH 12/18/17 10:00 (Glucagon Inj) 1 mg UNSCH PRN OTHER 12/18/17 10:00 (NovoLOG SUPPLEMENTAL SCALE) 1 ACHS SLIDING SCALE SQ 12/18/17 12:00 12/19/17 20:15 (Desyrel) 100 mg HS PO 12/18/17 21:00 12/19/17 20:15 (Lexapro) 20 mg DAILY PO 12/18/17 14:00 12/20/17 09:44 (KlonoPIN) 1 mg HS PO 12/19/17 21:00 12/19/17 20:15 (KlonoPIN) 0.5 mg DAILY@0800 PO 12/20/17 08:00 12/20/17 08:47 A/P Problem List: (1) Diabetes mellitus ICD Code: E11.9 - Type 2 diabetes mellitus without complications (2) Major depressive disorder, recurrent ICD Code: F33.9 - Major depressive disorder, recurrent, unspecified Assessment and Plan This a 57-year-old male with past mental history significant for type 2 diabetes. He recently overdosed on Seroquel and is currently being managed by psychiatry because of this. Depression anxiety with recent suicide attempt Currently in the psychiatric med unit will continue to follow psychiatry's recommendations Type 2 diabetes -Continue on his Glucotrol and ISS -Monitor blood glucose per protocol Hypertension -Continue home medication Discharge Planning Pending psychiatric clearance Prakash uDbois MD R3 Dec 20, 2017 11:22
--- NOTE | 2017-12-20 11:38 | HHI.PYPN ---
Subjective Remarks On psychiatric evaluation today patient is calm, cooperative and pleasant. He reports feeling much better. His anxiety has decreased significantly, he is sleeping better at night. He feels rested and " in peace". He denies suicidal enemas ideation, he denies peaceful and auditory hallucinations. He is oriented 3. Review of Systems Except as stated in HPI: all other systems reviewed are Neg Mental Status Examination Appearance: Appropriate Consciousness: Alert Orientation: x4 Motor Activity: Normal gait Speech: Unremarkable Language: Adequate Fund of Knowledge: Adequate Attention and Concentration: Adequate Memory: Unremarkable Mood: Sad, Anxious Affect: Sad Thought Process & Associations: Intact Thought Content: Preoccupations, Obsessions, Compulsive Hallucination Type: None Delusion Type: None Suicidal Ideation: No Suicidal Plan: No Suicidal Intention: No Homicidal Ideation: No Homicidal Plan: No Homicidal Intention: No Insight: Fair Judgment: Impulsive Results Vitals/IOs Vital Signs Date Time Temp Pulse Resp B/P (MAP) Pulse Ox O2 Delivery O2 Flow Rate FiO2 12/20/17 07:24 99.4 98 17 150/89 (109) 95 Intake and Output 12/20/17 12/20/17 12/21/17 08:00 16:00 00:00 Intake Total 0 ml Balance 0 ml Assessment & Plan Problem List: (1) Major depressive disorder, recurrent ICD Codes: F33.9 - Major depressive disorder, recurrent, unspecified Assessment & Plan: Continue current psychotropic regiment Assessment & Plan Estimated LOS: days Justification for Cont. Inpt. Patient has showed significant improvement, but still he is a high risk of danger to self. Balta Soto MD Dec 20, 2017 11:38
[2017-12-20 17:56] VITALS: BP 162/81; PULSE 101; RESP 17; TEMP 98.9; O2SAT 95
[2017-12-20] MEDS: clonazePAM 1 MG TAB PO SCH (21:28)
[2017-12-20] MEDS: traZODone HCL 100 MG TAB PO SCH (21:28)
[2017-12-21] MEDS: DILTIAZEM HCL 60 MG TAB PO SCH ×2 (00:23→06:14)
[2017-12-21 05:36] VITALS: BP 94/62; PULSE 72; RESP 16; TEMP 98; O2SAT 95
[2017-12-21] MEDS: INSULIN ASPART SUPPLEMENTAL SCALE SQ SCH (08:00)
[2017-12-21] MEDS: clonazePAM 0.5 MG TAB PO SCH (08:24)
[2017-12-21] MEDS ORDERED: CLON.5 PO (08:58)
[2017-12-21] MEDS ORDERED: TRAZ50TA12 PO (08:58)
[2017-12-21] MEDS ORDERED: LEXA20TA PO (08:58)
[2017-12-21] MEDS ORDERED: AMLO10TA2 PO (08:58)
--- NOTE | 2017-12-21 08:59 | HHI.DS ---
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 Guajardo, he has medical history of hypertension and diabetes, who was brought to the emergency room by EMS after a possible overdose with numerous Seroquel pills. His daughter found him unresponsive at home. She had last seen him at 9:30 in the morning when he went out for a job interview. She came home at 2:30 PM and found him unarousable. She thought he was sleeping. At 330 she tried to wake him up and he was not waking up. She has also noticed an empty bottle of Seroquel. The pill bottle was filled yesterday with 3 month supply and it was empty. Due to borderline GCS, tachypnea and a high risk of an aspiration without ability to protect and airway, he was intubated in the emergency department by ED attending. Now extubated, with a stable parameters. Consulted to psychiatry to address suicidal attempt. EMR was reviewed. Collateral information from his daughter Tamiko Archuleta was obtained. On psychiatric evaluation I find a patient is calm, cooperative, anxious. The patient reports that in the last weeks he has been extremely stressed at home and at work. He says that about 2 weeks ago he departed to [place] in a mission of his job for 8 weeks, but due to the level of anxiety an "an episode of panic attack and nervous breakdown" he had to be taken to the ER in [place] he was sent back to the [place] a week later. After he came from [place] he has been very anxious, depressed. His 24 years old daughter got a car accident "and has been living at home since then and we had some stressful situations". Patient reports that 2 days ago he was just extremely depressed and anxious, wanted to go to sleep "for a while", and he took "a bunch of medications". He says that most poorly they were over 30 pills. Patient states that he did not was planning to . He expressed understanding about being low in emotions, feeling very distressed, overwhelmed , but he reports that he has too many reasons to live for, he wants to see his grandkids and complete his job. The patient reports that he has been compliant with his psychotropic "but they are not helping me with anxiety". He is now oriented 3, no fluctuation of consciousness, no attention deficit. He is logical, coherent and relevant. No paranoia, no loosening of associations, no selam, no delusions are present. The patient denies the use of illegal drugs and alcohol. I spoke with his daughter, who states that this is the second time that her father overdose in 8 years. She says that she does not feel safe with having her father released back home without having a thorough revision of his medication what happened with him in [place]. She reports that after he came from [place] he has been extremely anxious and also depressed and she thinks that this is the reason he overdosed. She relates that given the amount of medications that her father took this time and overdose with suicidal intentions is very possible. 11/23/2017 the patient was seen today for psychiatric reevaluation in the psychiatric unit. I have discussed this patient widely with nurse in charge also with counselor Kylah. Patient was calm, cooperative, pleasant. Reports feeling much better today. The patient was able to elaborate a little bit about what is going on with him in terms of anxiety. He says that he has been experiencing episodes of acute anxiety in which he really says that he is going to . He also says that he gets these intrusive thoughts of having a medical condition that is going to kill him. When he was in [place] he could not stop thinking that he was dying and nobody will be able to take care of him. Patient reports that he is very functional at work and at home, but he has always been a very anxious person. He describes his anxiety as a physical anxiety rather than a mental anxiety. Obviously, he has many real stressors at home and work, but he has always been able to manage them. At this moment he reports good appetite, good sleep, good motivation to get better, he denies suicidal enemas ideation, he denies visual and auditory hallucinations. I met with his daughter again today, I explained my plan of switching his medications and keeping the patient under observation until Thursday. - Second opinion Patient seen for second opinion. 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 Patient was found sitting in room, calm and cooperative with interview. Patient states that he had overdosed on quetiapine in an attempt to try to sleep yet states having taken over 30 pills. When asked what he was expecting was going to happen he states he expected to go to sleep and denies wanting to end his life yet could not providing explanation to having taken over 30 tablets. He states having felt overwhelmed recently, mentioning having been hospitalized in [place]. He reports having had difficulty with sleep, appetite recently. Currently he states feeling anxious, denies SI/HI, AVH or delusions at this time. Tobacco Use In Past 30 Days: No Tobacco Past 30 Days Alcohol Use: Never Hospital Course The patient was admitted in med psych after being medically stabilized in the ICU after an overdose with Seroquel. Once the patient was in the MedPsych unit a psychiatric and psychosocial assessment were performed. Initially the patient was endorsing symptoms of depression, a lot of anxiety, panic attacks, concerns regarding his medical conditions. The patient had been sleeping poorly and having increased anxiety in the last week to the point that he overdosed with Seroquel "to go to sleep". The patient was in Celexa 10 mg and Seroquel 200 mg for depression, anxiety and insomnia. I removed the Seroquel 200 mg she is in my opinion there was not a good option to help with sleep and most probably the patient was abusing it he was just getting side effects from it. I switch the Seroquel with trazodone 100 mg to help with her sleep. I started the patient in clonazepam 0.5 mg 3 times daily and increase the Celexa to 20 mg daily to help with depression and anxiety. The patient showed a very good response to this psychotropic regimen. Patient was also supposed to individual and group counseling in the unit, for which he also had a good response. Counselor and myself met with his and oldest daughter in 2 locations in order to get collateral information and arrange an safe discharge plan with the patient. They were in agreement with the discharge plan and with supervising the patient's intake of medications and follow-up in the outpatient basis. The moment of the discharge the patient is in a good spirits, he denies symptoms of depression, he denies sealm, denies psychosis, denies anxiety, he denies suicidal and homicidal ideation, he denies visual and auditory hallucinations. Patient expresses motivation to continue his psychiatric care as an outpatient and to take the medications as prescribed. Extensive support, motivation and psychoeducation were provided. Results Blood Pressure 94 / 62 Vital Signs Date Time Temp Pulse Resp B/P (MAP) Pulse Ox O2 Delivery O2 Flow Rate FiO2 12/21/17 05:36 98.0 72 16 94/62 (73) 95 Laboratory Tests Test 12/19/17 08:15 Neutrophils (%) (Auto) 81.2 % (16.0-70.0) Lymphocytes (%) (Auto) 8.6 % (9.0-44.0) Neutrophils # (Auto) 8.1 TH/MM3 (1.8-7.7) Lymphocytes # (Auto) 0.9 TH/MM3 (1.0-4.8) Random Glucose 125 MG/DL (74-106) Albumin 3.3 GM/DL (3.4-5.0) Phosphorus Level 2.4 MG/DL (2.5-4.9) Estimat Glomerular Filtration Rate 62 ML/MIN (>89) Laboratory Results Test 12/18/17 06:24 12/19/17 08:15 Cholesterol Level 130 MG/DL (120-200) HDL Cholesterol 37.1 MG/DL (40.0-60.0) LDL Cholesterol 66 MG/DL (0-99) Triglycerides Level 134 MG/DL (42-150) Hemoglobin A1c 5.3 % (4.3-6.0) Summary of Procedures Non-none procedure Pending results at discharge: No Medications # of Antipsychotic meds at D/C: 0 Approp Antipsych med options 1 - Minimum of three failed multiple trials of monotherapy. 2 - Documented plan to taper to monotherapy due to previous use of multiple meds OR cross-taper in progress at D/C. 3 - Documentation of augmentation of Clozapine. 4 - Justification other than those listed in allowable values 1-3, document here : Discharge Discharge Date: Dec 21, 2017 Discharge Diagnosis: (1) Major depressive disorder, recurrent Diagnosis: Principal ICD Code: F33.9 - Major depressive disorder, recurrent, unspecified Pt Condition on Discharge: Stable Discharge Disposition: Discharge Home Discharge Instructions Diet Instructions: Heart Healthy Diet Activities you can perform: Weight Bearing as Yannick Scheduled Appointment: Discharge Time > 30 minutes Mental Status Examination Appearance: Appropriate Consciousness: Alert Orientation: x4 Motor Activity: Normal gait Speech: Unremarkable Language: Adequate Fund of Knowledge: Adequate Attention and Concentration: Adequate Memory: Unremarkable Mood: Sad, Anxious Affect: Sad Thought Process & Associations: Intact Thought Content: Preoccupations, Obsessions, Compulsive Hallucination Type: None Delusion Type: None Suicidal Ideation: No Suicidal Plan: No Suicidal Intention: No Homicidal Ideation: No Homicidal Plan: No Homicidal Intention: No Insight: Fair Judgment: Impulsive Discharge/Advance Care Plan Health Problems: (1) Major depressive disorder, recurrent Goals to promote your health * To prevent worsening of your condition and complications * To maintain your health at the optimal level Directions to meet your goals Take your medications as prescribed Follow your dietary instruction Follow activity as directed Keep your appointments as scheduled Take your immunizations and boosters as scheduled If your symptoms worsen call your PCP, if no PCP go to Urgent Care Center or Emergency Room For 16/03 questions related to your inpatient stay or results of tests pending at discharge, please contact Dr. Balta Soto at Smoking is Dangerous to Your Health. Avoid second hand smoking Balta Soto MD Dec 21, 2017 08:59
[2017-12-21] MEDS: ESCITALOPRAM OXALATE 20 MG TAB PO SCH (09:33)
[2017-12-21] MEDS: glipiZIDE 10 MG TAB PO SCH (09:37)
--- NOTE | 2017-12-21 10:14 | HHI.PR ---
Subjective Remarks No complaints today. Blood pressure stable. Blood sugar stable. Patient is medically stable. Objective Vital Signs Date Time Temp Pulse Resp B/P (MAP) Pulse Ox O2 Delivery O2 Flow Rate FiO2 12/21/17 05:36 98.0 72 16 94/62 (73) 95 12/20/17 17:56 98.9 101 17 162/81 (108) 95 I/O 12/20/17 12/20/17 12/20/17 12/21/17 12/21/17 12/21/17 07:00 15:00 23:00 07:00 15:00 23:00 Intake Total 0 ml 1320 ml 120 ml Balance 0 ml 1320 ml 120 ml Intake Oral 0 ml 1320 ml 120 ml # Voids 1 1 1 Result Diagram: 12/19/1781412/19/17814 Objective Remarks GENERAL: NAD, A&Ox3 HEAD: Normocephalic. NECK: Supple, trachea midline. No lymphadenopathy. EYES: No scleral icterus. No injection or drainage. CARDIOVASCULAR: Regular rate and rhythm without murmurs, gallops, or rubs. RESPIRATORY: Breath sounds equal bilaterally. No accessory muscle use. GASTROINTESTINAL: Abdomen soft, non-tender, nondistended. MUSCULOSKELETAL: No cyanosis, or edema. SKIN: Warm and dry. NEURO: No focal neurological deficitis. A/P Problem List: (1) Hypertension ICD Code: I10 - Essential (primary) hypertension (2) Diabetes mellitus ICD Code: E11.9 - Type 2 diabetes mellitus without complications (3) Major depressive disorder, recurrent ICD Code: F33.9 - Major depressive disorder, recurrent, unspecified Assessment and Plan 57-year-old male with past mental history significant for type 2 diabetes. He recently overdosed on Seroquel and is currently being managed by psychiatry because of this. Depression anxiety with recent suicide attempt Continue management per psychiatry recommendations. Diabetes mellitus type 2 Follow blood sugars Insulin sliding scale while inpatient. Diabetic diet Resume glipizide at discharge. Hypertension Amlodipine continued Blood pressures are stabilized Discharge Planning Medically clear for discharge. Xavier John MD Dec 21, 2017 10:14
== END 2017-12-21 11:15 | disposition home or self-care (01) | DRG 885 ==
LOC: H4EA 18:54
PROVIDERS: ADMIT Student in an Organized Health Care Education/Training Program; ATTEND Student in an Organized Health Care Education/Training Program
DX: F33.2 Major depressive disorder, recurrent severe without psychotic features (principal); E11.9 Type 2 diabetes mellitus without complications; I10 Essential (primary) hypertension; F41.9 Anxiety disorder, unspecified
CPT/HCPCS: 80048; 80053; 80061; 82948; 83036; 83735; 84100; 84439; 84443; 85025; J1815

== ENCOUNTER 2018-01-28 10:10 | Inpatient (IN) | payer BC ==
[~2018-01-28] VITALS: Ht 185.4 cm; Wt 110.7 kg
[~2018-01-28 10:10] MED LIST changes: +CLON.5 PO; +TRAZ50TA12 PO
[2018-01-28 10:22] VITALS: BP 146/82; PULSE 112; RESP 16; TEMP 98.2; O2SAT 98
[2018-01-28] MEDS ORDERED: ESCI10TA PO (11:01)
[2018-01-28] MEDS ORDERED: GLIP10TA6 PO (11:01)
[2018-01-28] MEDS ORDERED: SERO400T PO (11:01)
[2018-01-28] MEDS ORDERED: VORT1TAB PO (11:01)
[2018-01-28] MEDS ORDERED: BUSP10TA PO (11:01)
--- NOTE | 2018-01-28 11:33 | PD ---
HPI Chief Complaint: Psychiatric Symptoms Time Seen by Provider: 11:12 Travel History International Travel<30 days: No Contact w/Intl Traveler<30days: No Traveled to known affect area: No History of Present Illness HPI Patient comes in stating that Dr. Lim wants to see him. Patient is here voluntarily. And he denies having any suicidal or homicidal ideation. Patient was notably admitted December 21 time for Seroquel overdose and he was seen by Dr. Lim at that time. Patient currently has no other medical complaints, but is here for further evaluation of his major depressive disorder. Patient also suffers from anxiety and was recently switched from Seroquel to trazodone. No known drug allergy Past medical history significant for hypertension prediabetes depression anxiety PFSH Past Medical History Anxiety: Yes Depression: Yes (PANIC ATTACKS) Cancer: No Cardiac Catheterization: Yes Cardiovascular Problems: Yes Chest Pain: Yes Diabetes: Yes (Prediabetes) Patient Takes Glucophage: No Diminished Hearing: No Genitourinary: No Headaches: Yes Hypertension: Yes Immune Disorder: No Musculoskeletal: No Psychiatric: Yes (Depression diagnosed in 2010) Reproductive: No Respiratory: No Seizures: No Tetanus Vaccination: > 5 Years Past Surgical History Other Surgery: Yes (Hemmorhoidectomy "several years ago") Social History Alcohol Use: No Tobacco Use: No Substance Use: No Allergies-Medications (Allergen,Severity, Reaction): Coded Allergies: No Known Allergies (Verified Adverse Reaction, Unknown, 01/28/18) Reported Meds & Prescriptions Reported Meds & Active Scripts Active Reported Escitalopram (Escitalopram Oxalate) 10 Mg Tab 10 Mg PO EVERY OTHER DAY Glipizide 10 Mg Tab 10 Mg PO BIDAC Take 30 minutes before a meal Seroquel (Quetiapine Fumarate) 400 Mg Tab 400 Mg PO HS Buspirone (Buspirone HCl) 10 Mg Tab 10 Mg PO BID Trintellix (Vortioxetine) 5 Mg Tab 5 Mg PO DAILY Review of Systems General / Constitutional: No: Fever Eyes: No: Visual changes HENT: No: Headaches Cardiovascular: No: Chest Pain or Discomfort Respiratory: No: Shortness of Breath Gastrointestinal: No: Abdominal Pain Genitourinary: No: Dysuria Musculoskeletal: No: Pain Skin: No Rash Neurologic: No: Weakness Psychiatric: Positive: Depression Endocrine: No: Polydipsia Hematologic/Lymphatic: No: Easy Bruising Physical Exam Narrative GENERAL: Well-kept middle-aged male SKIN: Warm and dry. HEAD: Atraumatic. Normocephalic. EYES: Pupils equal and round. No scleral icterus. No injection or drainage. ENT: No nasal bleeding or discharge. Mucous membranes pink and moist. NECK: Trachea midline. No JVD. CARDIOVASCULAR: Regular rate and rhythm. RESPIRATORY: No accessory muscle use. Clear to auscultation. Breath sounds equal bilaterally. GASTROINTESTINAL: Abdomen soft, non-tender, nondistended. Hepatic and splenic margins not palpable. MUSCULOSKELETAL: Extremities without clubbing, cyanosis, or edema. No obvious deformities. NEUROLOGICAL: Awake and alert. No obvious cranial nerve deficits. Motor grossly within normal limits. Five out of 5 muscle strength in the arms and legs. Normal speech. PSYCHIATRIC: Depressed mood and sad affect; insight and judgment normal. Data Data Last Documented VS Vital Signs Date Time Temp Pulse Resp B/P (MAP) Pulse Ox O2 Delivery O2 Flow Rate FiO2 01/28/18 11:02 20 01/28/18 10:22 98.2 112 146/82 (103) 98 Orders Orders Complete Blood Count With Diff (01/28/18 11:15) Comprehensive Metabolic Panel (01/28/18 11:15) Thyroid Stimulating Hormone (01/28/18 11:15) Psych Screen (01/28/18 11:15) Drug Screen, Random Urine (01/28/18 11:15) Alcohol (Ethanol) (01/28/18 11:15) Labs Laboratory Tests Test 01/28/18 11:25 White Blood Count 7.5 TH/MM3 Red Blood Count 4.95 MIL/MM3 Hemoglobin 13.5 GM/DL Hematocrit 41.4 % Mean Corpuscular Volume 83.7 FL Mean Corpuscular Hemoglobin 27.3 PG Mean Corpuscular Hemoglobin Concent 32.6 % Red Cell Distribution Width 15.3 % Platelet Count 237 TH/MM3 Mean Platelet Volume 9.3 FL Neutrophils (%) (Auto) 82.5 % Lymphocytes (%) (Auto) 9.3 % Monocytes (%) (Auto) 7.2 % Eosinophils (%) (Auto) 0.6 % Basophils (%) (Auto) 0.4 % Neutrophils # (Auto) 6.2 TH/MM3 Lymphocytes # (Auto) 0.7 TH/MM3 Monocytes # (Auto) 0.5 TH/MM3 Eosinophils # (Auto) 0.0 TH/MM3 Basophils # (Auto) 0.0 TH/MM3 CBC Comment DIFF FINAL Differential Comment Blood Urea Nitrogen 17 MG/DL Creatinine 1.21 MG/DL Random Glucose 188 MG/DL Total Protein 6.7 GM/DL Albumin 3.5 GM/DL Calcium Level 8.5 MG/DL Alkaline Phosphatase 85 U/L Aspartate Amino Transf (AST/SGOT) 30 U/L Alanine Aminotransferase (ALT/SGPT) 45 U/L Total Bilirubin 0.4 MG/DL Sodium Level 142 MEQ/L Potassium Level 4.1 MEQ/L Chloride Level 108 MEQ/L Carbon Dioxide Level 24.8 MEQ/L Anion Gap 9 MEQ/L Estimat Glomerular Filtration Rate 62 ML/MIN Thyroid Stimulating Hormone 3rd Gen 0.533 uIU/ML Ethyl Alcohol Level LESS THAN 3 MG/DL MDM Medical Decision Making Medical Screen Exam Complete: Yes Emergency Medical Condition: Yes Medical Record Reviewed: Yes Differential Diagnosis Depression versus stress reaction versus electrolyte abnormalities versus anemia versus dehydration versus thyroid disorder Narrative Course During the patient's admission on December 21 his hypertension was managed with amlodipine, and his blood glucose was controlled by sliding scale diabetic diet and glipizide.... Dr. Lim has been made aware CBC shows no leukocytosis, no anemia, normal platelet count, no left shift. Alcohol screening lab was negative Electrolytes are all within normal limits with the exception of a random glucose of 188 Normal kidney liver functions Normal TSH screening exam Diagnosis Primary Impression: Medical clearance Disposition: 01 DISCHARGE HOME Condition: Stable Bladimir Presley MD Jan 28, 2018 11:33
[2018-01-28 11:50] LABS: AUTOMATED NEUTROPHIL # 6.2 TH/MM3 (1.8-7.7); BASOPHIL % 0.4 % (0.0-2.0); EOSINOPHIL % 0.6 % (0.0-4.0); HEMATOCRIT 41.4 % (39.0-51.0); HEMOGLOBIN 13.5 GM/DL (13.0-17.0); LYMPH % 9.3 % (9.0-44.0); LYMPHOCYTE # 0.7 TH/MM3 (1.0-4.8); MEAN CELL VOLUME 83.7 FL (80.0-100.0); MEAN CORPUSCULAR HEMOGLOBIN 27.3 PG (27.0-34.0); MEAN CORPUSCULAR HGB CONC 32.6 % (32.0-36.0); MEAN PLATELET VOLUME 9.3 FL (7.0-11.0); MONO % 7.2 % (0.0-8.0); MONOCYTE # 0.5 TH/MM3 (0-0.9); NEUT % 82.5 % (16.0-70.0); PLATELET COUNT 237 TH/MM3 (150-450); RED BLOOD COUNT 4.95 MIL/MM3 (4.50-5.90); RED CELL DISTRIBUTION WIDTH 15.3 % (11.6-17.2); WHITE BLOOD COUNT 7.5 TH/MM3 (4.0-11.0)
[2018-01-28 12:15] LABS: ALBUMIN 3.5 GM/DL (3.4-5.0); AST (GOT) 30 U/L (15-37); BICARBONATE 24.8 MEQ/L (21.0-32.0); BLOOD UREA NITROGEN 17 MG/DL (7-18); CALCIUM 8.5 MG/DL (8.5-10.1); CHLORIDE 108 MEQ/L (98-107); CREATININE 1.21 MG/DL (0.60-1.30); GLOMERULAR FILTRATION RATE 62 ML/MIN (>89); GLUCOSE,RANDOM 188 MG/DL (74-106); SODIUM (NA) 142 MEQ/L (136-145)
[2018-01-28 12:26] LABS: ALKALINE PHOSPHATASE 85 U/L (45-117); ALT (GPT) 45 U/L (12-78); TOTAL BILIRUBIN ADULT 0.4 MG/DL (0.2-1.0); TOTAL PROTEIN 6.7 GM/DL (6.4-8.2)
[2018-01-28] MEDS ORDERED: ACETAMINOPHEN 325 MG TAB PO PRN (13:45)
[2018-01-28] MEDS ORDERED: ALUMINUM/MAGNESIUM/SIMETH 30 ML CUP PO PRN (13:45)
[2018-01-28] MEDS ORDERED: NICOTINE 21 MG/24 HR PATCH T-DERMAL SCH (13:45)
[2018-01-28] MEDS ORDERED: [UNRECOGNIZED DRUG - OTHER] PO SCH (13:45)
[2018-01-28] MEDS ORDERED: VORTIOXETINE 5 MG PO SCH (13:45)
[2018-01-28] MEDS ORDERED: MAGNESIUM HYDROXIDE SUSP 30 ML CUP PO PRN (13:45)
[2018-01-28] MEDS ORDERED: LORazepam 0.5 MG TAB PO PRN (13:45)
[2018-01-28] MEDS ORDERED: LORazepam 2 MG/ML VIAL IM PRN ×2 (13:45)
[2018-01-28] MEDS ORDERED: LORazepam 1 MG TAB PO PRN (13:45)
[2018-01-28 14:05] VITALS: BP 168/81; PULSE 92; RESP 19; O2SAT 97
[2018-01-28 15:09] VITALS: BP 168/85; PULSE 109; RESP 17; TEMP 97.4; O2SAT 96
--- NOTE | 2018-01-28 15:30 | PD.PN.STU ---
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 He was hospitalized 12/15/17 for a suicide attempt with Seroquel shortly after coming home from a business trip to [facility] that was cut short because of an episode of panic attack and nervous breakdown. After his discharge from the hospital, the patient has not returned to work and has been staying at home and under supervision of his and daughters. His is bringing him in voluntary basis today because he has not been himself and the Trintellex isnt helping his mood since his discharge in November and he had a panic attack after we went [place] walk [place] the [place] his family think with suicidal intentions, yesterday night saying he felt like he was trembling and his throat was closing. She is also worried because he has taken walks to a bridge and she is concerned he may make another suicidal attempt in the future but doesnt think he currently has suicidal ideations, no homicidal ideations and no audio or visual hallucinations or delusions. She does not feel like the Trintellex, prescribed one month ago is helping him and wants to have a second opinion with another psychiatrist. Per , patient is sleeping 6-7 hours per night if he takes his Seroquel but it is difficult for him to begin sleeping. He has lost interest in his work and per , He used to be on his phone constantly for work but his phone broke a month ago and he has not been concerned. She states he also feels very guilty because he feels like a burden putting his family through this ordeal and also feels guilty because he is not working and not able to provide for his family financially with an upcoming wedding for one of his daughters and another daughter who is having financial issues. Per , he has low energy and just sits around the house. He tried to do some trainings for his job but had to stop because he couldnt concentrate on the readings. She has also noticed his loss of appetite, stating that hes lost around 25 pounds in the past two months. When asked if the patient would like to be voluntarily admitted, patient initially refused. states it may be because his job requires him to report reasons for hospitalization. 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 He does not have a history of alcoholism or drug abuse. Objective Vitals Appearance: Appears stated age, generally clean, not making eye contact, fidgeting, tense Motor Activity: Increased, restless Speech: slow, low volume Mood: " depressed" Affect: Blunted, flat Fund of Knowledge: Adequate Attention and Concentration: Impaired Memory: Unremarkable Consciousness: Alert and Oriented x 4 Suicidal Ideation: No Suicidal Plan: Suicidal Intention: No Homicidal Ideation: No Homicidal Plan: No Homicidal Intention: No Insight: Poor Judgment: fair Memory: [id number] Vital Signs Date Time Temp Pulse Resp B/P (MAP) Pulse Ox O2 Delivery O2 Flow Rate FiO2 01/28/18 14:28 01/28/18 14:05 92 19 168/81 (110) 97 Room Air 01/28/18 11:02 20 01/28/18 10:22 98.2 112 16 146/82 (103) 98 Result Diagram: 01/28/18 1125 01/28/18 1125 A/P Assessment and Plan Patient will be admitted with a diagnosis of major depressive disorder, recurrent, without psychosis Plan: The patient will be admitted in psychiatry for stabilization and safety Sean Wilkins Jan 28, 2018 15:30 Balta Soto MD Jan 28, 2018 15:38
--- NOTE | 2018-01-28 15:55 | HHI.HP ---
Provisional Diagnosis Admission Date Jan 28, 2018 at 13:42 [place] I. Major depressive disorder, recurrent, severe, without psychosis, CHET [place] II. Deferred [place] III. Hypertension Certification of Person's Competence To Provide Express and Informed Consent I have personally examined Ashwin Archuleta , a person being served at [facility] on, Jan 28, 2018 15:39. Express and informed consent means consent voluntarily given in writing, by a competent person, after sufficient explanation and disclosure of the subject matter involved to enable the person to make a knowing and willful decision without any element of force, fraud, deceit, duress, or other form of constraint or coercion. This person is 18 years of age or older, is not now known to be incompetent to consent to treatment with a guardian advocate, and does not have a health care surrogate or proxy currently making medical treatment decisions. I have found this person to be one of the following: [x] Competent to provide express and informed consent, as defined above, for voluntary admission to this facility and is competent to provide express and informed consent for treatment. He/she has the consistent capacity to make well reasoned, willful, and knowing decisions concerning his or her medical or mental health treatment. The person fully and consistently understands the purpose of the admission for examination/placement and is fully capable of personally exercising all rights assured [place] Incompetent to provide express and informed consent to voluntary admission, and this is incompetent to provide express and informed consent to treatment. The person must be transferred to involuntary status and a petition for a guardian advocate filed with the Circuit Court. [] Refusing to provide express and informed consent to voluntary admission but is competent to provide express and informed consent for treatment. The person must be discharged or transferred to involuntary status. Form shall be completed within 24 hours of a person's arrival at the receiving facility and filed in the clinical record of each person: 1. Admitted on a voluntary basis 2. Permitted to provide express and informed consent to his/her own treatment 3. Allowed to transfer from involuntary to voluntary status 4. Prior to permitting a person to consent to his or her own treatment after having been previously found incompetent to consent to treatment. History of Present Illness Capacity: Has Capacity HPI This note was written by Sean Wilkins, MS3, revised and edited by me. 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 He was hospitalized 12/15/17 for a suicide attempt with Seroquel shortly after coming home from a business trip to [facility] that was cut short because of an episode of panic attack and nervous breakdown. After his discharge from the hospital, the patient has not returned to work and has been staying at home and under supervision of his and daughters. His is bringing him in voluntary basis today because he has not been himself and the Trintellex isnt helping his mood since his discharge in November and he had a panic attack after we went [place] walk [place] the [place] his family think with suicidal intentions, yesterday night saying he felt like he was trembling and his throat was closing. She is also worried because he has taken walks to a bridge and she is concerned he may make another suicidal attempt in the future but doesnt think he currently has suicidal ideations, no homicidal ideations and no audio or visual hallucinations or delusions. She does not feel like the Trintellex, prescribed one month ago is helping him and wants to have a second opinion with another psychiatrist. Per , patient is sleeping 6-7 hours per night if he takes his Seroquel but it is difficult for him to begin sleeping. He has lost interest in his work and per , He used to be on his phone constantly for work but his phone broke a month ago and he has not been concerned. She states he also feels very guilty because he feels like a burden putting his family through this ordeal and also feels guilty because he is not working and not able to provide for his family financially with an upcoming wedding for one of his daughters and another daughter who is having financial issues. Per , he has low energy and just sits around the house. He tried to do some trainings for his job but had to stop because he couldnt concentrate on the readings. She has also noticed his loss of appetite, stating that hes lost around 25 pounds in the past two months. When asked if the patient would like to be voluntarily admitted, patient initially refused. states it may be because his job requires him to report reasons for hospitalization. During the evaluation the patient presents with pronounced neurovegetative symptoms of depression including slow speech, fragmented thought, psychomotor retardation, flat affect, lack of motivation. 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 Substance History: He does nothave a history of alcoholism or drug abuse. Past Medical history: HTN. Review of Systems Constitutional: DENIES: Diaphoretic episodes, Fatigue, Fever, Weight gain, Weight loss, Chills, Dizziness, Change in appetite, Night Sweats Endocrine: DENIES: Heat/cold intolerance, Polydipsia, Polyuria, Polyphagia Eyes: DENIES: Blurred vision, Diplopia, Eye inflammation, Eye pain, Vision loss , Photosensitivity, Double Vision Ears, nose, mouth, throat: DENIES: Tinnitus, Hearing loss, Vertigo, Nasal discharge, Oral lesions, Throat pain, Hoarseness, Ear Pain, Running Nose, Epistaxis, Sinus Pain, Toothache, Odynophagia Respiratory: DENIES: Apneas, Cough, Snoring, Wheezing, Hemoptysis, Sputum production, Shortness of breath Cardiovascular: DENIES: Chest pain, Palpitations, Syncope, Dyspnea on Exertion , PND, Lower Extremity Edema, Orthopnea, Claudication Gastrointestinal: DENIES: Abdominal pain, Black stools, Bloody stools, Constipation, Diarrhea, Nausea, Vomiting, Difficulty Swallowing, Anorexia Genitourinary: DENIES: Sexual dysfunction, Urinary frequency, Urinary incontinence, Urgency, Hematuria, Dysuria, Nocturia, Penile Discharge, Testicular Pain, Testicular Swelling Musculoskeletal: DENIES: Joint pain, Muscle aches, Stiffness, Joint Swelling, Back pain, Neck pain Integumentary: DENIES: Abnormal pigmentation, Nail changes, Pruritus, Rash Hematologic/lymphatic: DENIES: Bruising, Lymphadenopathy Immunologic/allergic: DENIES: Eczema, Urticaria Neurologic: DENIES: Abnormal gait, Headache, Localized weakness, Paresthesias, Seizures, Speech Problems, Tremor, Poor Balance Psychiatric: COMPLAINS OF: Anxiety, Mood changes, Depression, DENIES: Confusion , Hallucinations, Agitation, Suicidal Ideation, Homicidal Ideation, Delusions Substance Abuse History Drugs/Alcohol past 12 months He denies Past Family Social History Coded Allergies: No Known Allergies (Verified Allergy, Unknown, 01/28/18) Reported Medications Escitalopram (Escitalopram) 10 Mg Tab, 10 MG PO EVERY OTHER DAY, #30 TAB 0 Refills 01/28/18 Glipizide (Glipizide) 10 Mg Tab, 10 MG PO BIDAC for Blood Sugar Management, #60 TAB 0 Refills Take 30 minutes before a meal 01/28/18 Quetiapine (Seroquel) 400 Mg Tab, 400 MG PO HS, #30 TAB 0 Refills 01/28/18 Buspirone (Buspirone) 10 Mg Tab, 10 MG PO BID for Anxiety, TAB 0 Refills 01/28/18 Vortioxetine (Trintellix) 5 Mg Tab, 5 MG PO DAILY for Control Depression, #30 TAB 0 Refills 01/28/18 Discontinued Reported Medications Glipizide (Glipizide) 10 Mg Tab, 10 MG PO DAILY for Blood Sugar Management, #30 TAB 0 Refills Take 30 minutes before a meal 12/15/17 Quetiapine (Seroquel) 200 Mg Tab, 200 MG PO DAILY, #30 TAB 0 Refills 12/15/17 Discontinued Scripts Trazodone (Trazodone) 50 Mg Tab, 100 MG PO HS for Anxiety, #30 TAB Prov:Balta Soto MD 12/21/17 Clonazepam (Klonopin) 0.5 Mg Tab, 0.5 MG PO DAILY@0800 for Anxiety, #90 TAB Prov:Balta Soto MD 12/21/17 Escitalopram (Lexapro) 20 Mg Tab, 20 MG PO DAILY for Anxiety for 30 Days, #30 TAB 0 Refills Prov:Balta Soto MD 12/21/17 Amlodipine (Amlodipine) 10 Mg Tab, 10 MG PO DAILY for Blood Pressure Management , #30 TAB 0 Refills Prov:Balta oSto MD 12/21/17 Current Medications Medications (Trade) Dose Ordered Sig/Abbe Route Start Time Stop Time Status Last Admin (Ativan) 1 mg Q6H PRN PO 01/28/18 13:45 (Ativan Inj) 1 mg Q6H PRN IM 01/28/18 13:45 (Tylenol) 650 mg Q4H PRN PO 01/28/18 13:45 (Milk Of Magnesia Liq) 30 ml DAILY PRN PO 01/28/18 13:45 (Mag-Al Plus Susp Liq) 30 ml Q6H PRN PO 01/28/18 13:45 (Glucotrol) 10 mg BIDAC PO 01/28/18 16:00 (SEROquel) 400 mg HS PO 01/28/18 21:00 Patient Own Medication PT OWN MED: VORTIOXETINE(TRINTELL... DAILY PO 01/28/18 13:45 Future Hold (KlonoPIN) 0.5 mg Q8HR PO 01/28/18 14:00 Patient's Strengths (min. 2) Family support, established outpatient psychiatric care Physical Exam Psychomotor retardation present, but no withdrawal, no EPS, no catatonia Vital Signs Vital Signs Date Time Temp Pulse Resp B/P (MAP) Pulse Ox O2 Delivery O2 Flow Rate FiO2 01/28/18 15:09 97.4 109 17 168/85 (112) 96 01/28/18 14:05 Room Air Lab Results Test 01/28/18 11:25 White Blood Count 7.5 TH/MM3 Red Blood Count 4.95 MIL/MM3 Hemoglobin 13.5 GM/DL Hematocrit 41.4 % Mean Corpuscular Volume 83.7 FL Mean Corpuscular Hemoglobin 27.3 PG Mean Corpuscular Hemoglobin Concent 32.6 % Red Cell Distribution Width 15.3 % Platelet Count 237 TH/MM3 Mean Platelet Volume 9.3 FL Neutrophils (%) (Auto) 82.5 % Lymphocytes (%) (Auto) 9.3 % Monocytes (%) (Auto) 7.2 % Eosinophils (%) (Auto) 0.6 % Basophils (%) (Auto) 0.4 % Neutrophils # (Auto) 6.2 TH/MM3 Lymphocytes # (Auto) 0.7 TH/MM3 Monocytes # (Auto) 0.5 TH/MM3 Eosinophils # (Auto) 0.0 TH/MM3 Basophils # (Auto) 0.0 TH/MM3 CBC Comment DIFF FINAL Differential Comment Blood Urea Nitrogen 17 MG/DL Creatinine 1.21 MG/DL Random Glucose 188 MG/DL Total Protein 6.7 GM/DL Albumin 3.5 GM/DL Calcium Level 8.5 MG/DL Alkaline Phosphatase 85 U/L Aspartate Amino Transf (AST/SGOT) 30 U/L Alanine Aminotransferase (ALT/SGPT) 45 U/L Total Bilirubin 0.4 MG/DL Sodium Level 142 MEQ/L Potassium Level 4.1 MEQ/L Chloride Level 108 MEQ/L Carbon Dioxide Level 24.8 MEQ/L Anion Gap 9 MEQ/L Estimat Glomerular Filtration Rate 62 ML/MIN Thyroid Stimulating Hormone 3rd Gen 0.533 uIU/ML Ethyl Alcohol Level LESS THAN 3 MG/DL Mental Status Examination Appearance: Appropriate Consciousness: Alert Orientation: x4 Motor Activity: Normal gait Speech: Hesitant, Slow Language: Adequate Fund of Knowledge: Adequate Attention and Concentration: Adequate Memory: Unremarkable Mood: Sad Affect: Sad, Blunt Thought Process & Associations: Intact Thought Content: Appropriate Hallucination Type: None Delusion Type: None Suicidal Ideation: No Suicidal Plan: No Suicidal Intention: No Homicidal Ideation: No Homicidal Plan: No Homicidal Intention: No Insight: Fair Judgment: Impulsive Assessment & Plan Problem List: (1) Major depressive disorder, recurrent ICD Codes: F33.9 - Major depressive disorder, recurrent, unspecified Assessment & Plan: On psychiatric evaluation today the patient presents with ongoing symptomatology of depression and anxiety since he was discharged from his last hospitalization here at [facility] in November 2017. The patient presents today with prominent neurovegetative symptoms of depression such as weight loss of about 25 pounds in 2 months, decreased sleep, psychomotor retardation, delay speech, fragmented thinking. He also presents with lack of motivation, seclusive behavior, no enjoying his life, and suicidal thoughts, but not intention or plan. His relates that about 2 weeks ago the patient woke to a bridge where he was found by his family "thinking". The patient has no being able to restart his job again. He has been having catastrophic thinking, pervasive guiltiness about everything that has led to decrease functionality. Family and patient related that current psychotropic regimen is not helping. Patient also present a significant restlessness and jitteriness that could be suggestive of akathisia. he will be admitted in psychiatry in voluntary basis for stabilization. social worker delinquency prevention intervention for psychosocial assessment, more collateral information, individual and group therapies, to coordinate safe discharge. I will discontinue BuSpar and start clonazepam 0.5 mg a.m. and midday and 1 mg at night to help with sleep. Discontinue Trintellix 5 mg for depression, Continue Lexapro 10mg daily. Continue Seroquel 400 mg at bedtime for insomnia. Start propanolol 5 mg 3 times daily for potential symptoms of akathisia. Brief supportive psychotherapy provided. Assessment & Plan Estimated LOS: days Balta Soto MD Jan 28, 2018 15:55
[2018-01-28] MEDS ORDERED: PILL SPLITTER OTHER PRN (16:45)
[2018-01-28] MEDS: clonazePAM 0.5 MG TAB PO SCH ×2 (18:08→21:07)
[2018-01-28] MEDS: PROPRANOLOL HCL 10 MG TAB PO SCH (18:08)
[2018-01-28] MEDS: glipiZIDE 10 MG TAB PO SCH (18:08)
[2018-01-28] MEDS ORDERED: ESCITALOPRAM OXALATE 10 MG TAB PO SCH (21:00)
[2018-01-28] MEDS ORDERED: QUEtiapine FUMARATE 200 MG TAB PO SCH (21:00)
[2018-01-29] MEDS: PROPRANOLOL HCL 10 MG TAB PO SCH ×3 (00:54→17:00)
[2018-01-29 06:07] VITALS: BP 126/81; PULSE 88; RESP 16; TEMP 97.3; O2SAT 96
[2018-01-29] MEDS: clonazePAM 0.5 MG TAB PO SCH ×3 (06:10→22:00)
[2018-01-29] MEDS: glipiZIDE 10 MG TAB PO SCH ×2 (06:10→16:30)
[2018-01-29 09:38] LABS: BICARBONATE 29.7 MEQ/L (21.0-32.0); BLOOD UREA NITROGEN 17 MG/DL (7-18); CALCIUM 8.9 MG/DL (8.5-10.1); CHLORIDE 106 MEQ/L (98-107); CREATININE 1.19 MG/DL (0.60-1.30); GLOMERULAR FILTRATION RATE 63 ML/MIN (>89); GLUCOSE,RANDOM 99 MG/DL (74-106); SODIUM (NA) 144 MEQ/L (136-145)
[2018-01-29 09:39] LABS: CHOLESTEROL 112 MG/DL (120-200)
[2018-01-29 09:41] LABS: CHOLESTEROL/ HDL RATIO 3.06 RATIO; HDL CHOLESTEROL 36.6 MG/DL (40.0-60.0); LDL CHOLESTEROL 60 MG/DL (0-99); TRIGLYCERIDES 75 MG/DL (42-150)
--- NOTE | 2018-01-29 12:17 | HHI.PYPN ---
Subjective Remarks The patient was seen today for psychiatric reevaluation along with nurse in charge and also with medical student Sean. On the psychiatric evaluation today the patient continues to be very flat, amotivated, with a slow speech, fragmented thought, and catastrophic thinking. The patient does show improvement in his restlessness potential akathisia. He also was able to smile once in the interview. He reports that he feels committed to continue treatment and follow the recommendations. However, the patient seems to be distant, still guarded about issues going on in his job. He reported that he had a good sleep last night, his appetite is okay. He denies suicidal and homicidal ideation, he denies visual and auditory hallucinations. At some point during the evaluation and baseline yesterday observation and also in nurse report, the patient has become a little be internally preoccupied and he has being a little bit paranoid in the unit. Review of Systems Constitutional: DENIES: Diaphoretic episodes, Fatigue, Fever, Weight gain, Weight loss, Chills, Dizziness, Change in appetite, Night Sweats Endocrine: DENIES: Heat/cold intolerance, Polydipsia, Polyuria, Polyphagia Eyes: DENIES: Blurred vision, Diplopia, Eye inflammation, Eye pain, Vision loss , Photosensitivity, Double Vision Ears, nose, mouth, throat: DENIES: Tinnitus, Hearing loss, Vertigo, Nasal discharge, Oral lesions, Throat pain, Hoarseness, Ear Pain, Running Nose, Epistaxis, Sinus Pain, Toothache, Odynophagia Respiratory: DENIES: Apneas, Cough, Snoring, Wheezing, Hemoptysis, Sputum production, Shortness of breath Cardiovascular: DENIES: Chest pain, Palpitations, Syncope, Dyspnea on Exertion , PND, Lower Extremity Edema, Orthopnea, Claudication Gastrointestinal: DENIES: Abdominal pain, Black stools, Bloody stools, Constipation, Diarrhea, Nausea, Vomiting, Difficulty Swallowing, Anorexia Genitourinary: DENIES: Sexual dysfunction, Urinary frequency, Urinary incontinence, Urgency, Hematuria, Dysuria, Nocturia, Penile Discharge, Testicular Pain, Testicular Swelling Musculoskeletal: DENIES: Joint pain, Muscle aches, Stiffness, Joint Swelling, Back pain, Neck pain Hematologic/lymphatic: DENIES: Bruising, Lymphadenopathy Immunologic/allergic: DENIES: Eczema, Urticaria Neurologic: DENIES: Abnormal gait, Headache, Localized weakness, Paresthesias, Seizures, Speech Problems, Tremor, Poor Balance Psychiatric: COMPLAINS OF: Mood changes, Depression, Suicidal Ideation Mental Status Examination Appearance: Appropriate Consciousness: Alert Orientation: x4 Motor Activity: Normal gait Speech: Hesitant, Slow Language: Adequate Fund of Knowledge: Adequate Attention and Concentration: Adequate Memory: Unremarkable Mood: Sad Affect: Sad, Blunt Thought Process & Associations: Intact Thought Content: Appropriate Hallucination Type: None Delusion Type: None Suicidal Ideation: No Suicidal Plan: No Suicidal Intention: No Homicidal Ideation: No Homicidal Plan: No Homicidal Intention: No Insight: Fair Judgment: Impulsive Results Labs Test 01/29/18 08:29 Blood Urea Nitrogen 17 MG/DL Creatinine 1.19 MG/DL Random Glucose 99 MG/DL Calcium Level 8.9 MG/DL Sodium Level 144 MEQ/L Potassium Level 3.8 MEQ/L Chloride Level 106 MEQ/L Carbon Dioxide Level 29.7 MEQ/L Anion Gap 8 MEQ/L Estimat Glomerular Filtration Rate 63 ML/MIN Triglycerides Level 75 MG/DL Cholesterol Level 112 MG/DL LDL Cholesterol 60 MG/DL HDL Cholesterol 36.6 MG/DL Cholesterol/HDL Ratio 3.06 RATIO Vitals/IOs Vital Signs Date Time Temp Pulse Resp B/P (MAP) Pulse Ox O2 Delivery O2 Flow Rate FiO2 01/29/18 06:07 97.3 88 16 126/81 (96) 96 01/28/18 14:05 Room Air Assessment & Plan Problem List: (1) Major depressive disorder, recurrent ICD Codes: F33.9 - Major depressive disorder, recurrent, unspecified Assessment & Plan: The patient continues to present very significant neurovegetative symptoms of depression consisting and lack of motivation, flat affect, psychomotor retardation, fragmented speech and thought process. This the patient has lost 25 pounds in the last month, has tried to commit suicide twice in the last month, has been unable to integrate in his job, has been secluded at home, not doing anything, he has not used his cellphone for 1 month. We will start taper down the Seroquel to 200 at bedtime today, my plan is to discontinue this medication and put the patient on another medication for insomnia. Will increase Lexapro to 20 mg for depression. Continue clonazepam 0.5 mg in the morning and midday, and 1 mg at night. Continue Propranolol 5 mg 3 times daily for akathisia. Assessment & Plan Estimated LOS: days Justification for Cont. Inpt. Patient is to continue psychiatric hospitalization given his has risk of suicidality and danger to self Balta Soto MD Jan 29, 2018 12:17
[2018-01-29 15:59] LABS: HEMOGLOBIN A1C 5.1 % (4.3-6.0)
--- NOTE | 2018-01-29 15:59 | EKG ---
Date Performed: 01/28/2018 Time Performed: 16:34:39 PTAGE: 57 years EKG: SINUS TACHYCARDIA NONSPECIFIC T-WAVE ABNORMALITY ABNORMAL RHYTHM ECG Since the PREVIOUS TRACING , no significant change noted PREVIOUS TRACIN12/15/2017 16.51 DOCTOR: Ronel Ward Interpretating Date/Time 01/29/2018 15:56:34
[2018-01-29 18:04] VITALS: BP 132/82; PULSE 96; RESP 17; TEMP 98.2; O2SAT 97
[2018-01-29] MEDS: ESCITALOPRAM OXALATE 10 MG TAB PO SCH (20:56)
[2018-01-29] MEDS: QUEtiapine FUMARATE 200 MG TAB PO SCH (20:56)
[2018-01-30] MEDS: PROPRANOLOL HCL 10 MG TAB PO SCH ×3 (01:58→16:00)
[2018-01-30] MEDS: glipiZIDE 10 MG TAB PO SCH ×2 (06:27→16:00)
[2018-01-30] MEDS: clonazePAM 0.5 MG TAB PO SCH ×3 (06:27→21:00)
[2018-01-30 06:54] VITALS: BP 128/72; PULSE 74; RESP 18; TEMP 97.6; O2SAT 96
--- NOTE | 2018-01-30 16:21 | HHI.PYPN ---
Subjective Remarks Pt seen and discussed with nursing staff. He is compliant with medications. He has been isolative to his room. He remains depressed and withdrawn. He denies medication side effects. He denies SI/HI. Denies AVH. Mental Status Examination Appearance: Appropriate Consciousness: Alert Orientation: x4 Motor Activity: Normal gait Speech: Hesitant, Slow Language: Adequate Fund of Knowledge: Adequate Attention and Concentration: Adequate Memory: Unremarkable Mood: Sad Affect: Sad, Blunt Thought Process & Associations: Intact Thought Content: Appropriate Hallucination Type: None Delusion Type: None Suicidal Ideation: No Suicidal Plan: No Suicidal Intention: No Homicidal Ideation: No Homicidal Plan: No Homicidal Intention: No Insight: Fair Judgment: Impulsive Results Vitals/IOs Vital Signs Date Time Temp Pulse Resp B/P (MAP) Pulse Ox O2 Delivery O2 Flow Rate FiO2 01/30/18 06:54 97.6 74 18 128/72 (90) 96 01/28/18 14:05 Room Air Assessment & Plan Problem List: (1) Major depressive disorder, recurrent ICD Codes: F33.9 - Major depressive disorder, recurrent, unspecified Assessment & Plan Continue current tx plan. Estimated LOS: days Justification for Cont. Inpt. risk of decompensation Problem Qualifiers (1) Major depressive disorder, recurrent: Qualified Codes: F33.2 - Major depressive disorder, recurrent severe without psychotic features Mago Sotelo MD Jan 30, 2018 16:21
[2018-01-30 18:09] VITALS: BP 144/73; PULSE 88; RESP 18; TEMP 98.6; O2SAT 98
[2018-01-30] MEDS: ESCITALOPRAM OXALATE 10 MG TAB PO SCH (20:59)
[2018-01-30] MEDS: QUEtiapine FUMARATE 200 MG TAB PO SCH (20:59)
[2018-01-31] MEDS: PROPRANOLOL HCL 10 MG TAB PO SCH ×3 (00:58→16:10)
[2018-01-31 05:49] VITALS: BP 137/89; PULSE 78; RESP 16; TEMP 97.8; O2SAT 98
[2018-01-31] MEDS: clonazePAM 0.5 MG TAB PO SCH ×3 (06:15→21:01)
[2018-01-31] MEDS: glipiZIDE 10 MG TAB PO SCH ×2 (06:15→16:10)
--- NOTE | 2018-01-31 13:40 | HHI.PYPN ---
Subjective Remarks Pt seen and discussed with nursing staff. He remains withdrawn and depressed. He did attend groups today and meals which is an improvement. He has not initiated any interaction with staff or peers. He is compliant [facility] medications and denies side effects. Mental Status Examination Appearance: Appropriate Consciousness: Alert Orientation: x4 Motor Activity: Normal gait Speech: Hesitant, Slow Language: Adequate Fund of Knowledge: Adequate Attention and Concentration: Adequate Memory: Unremarkable Mood: Sad Affect: Sad, Blunt Thought Process & Associations: Intact Thought Content: Appropriate Hallucination Type: None Delusion Type: None Suicidal Ideation: No Suicidal Plan: No Suicidal Intention: No Homicidal Ideation: No Homicidal Plan: No Homicidal Intention: No Insight: Fair Judgment: Impulsive Results Vitals/IOs Vital Signs Date Time Temp Pulse Resp B/P (MAP) Pulse Ox O2 Delivery O2 Flow Rate FiO2 01/31/18 05:49 97.8 78 16 137/89 (105) 98 01/28/18 14:05 Room Air Assessment & Plan Problem List: (1) Major depressive disorder, recurrent ICD Codes: F33.9 - Major depressive disorder, recurrent, unspecified Assessment & Plan Continue current tx plan. Estimated LOS: days Justification for Cont. Inpt. risk of decompensation Problem Qualifiers (1) Major depressive disorder, recurrent: Qualified Codes: F33.2 - Major depressive disorder, recurrent severe without psychotic features Mago Sotelo MD Jan 31, 2018 13:40
[2018-01-31 19:33] VITALS: BP 152/91; PULSE 83; RESP 18; TEMP 98.3; O2SAT 99
[2018-01-31] MEDS: QUEtiapine FUMARATE 200 MG TAB PO SCH (20:54)
[2018-01-31] MEDS: ESCITALOPRAM OXALATE 10 MG TAB PO SCH (20:54)
[2018-02-01] MEDS: PROPRANOLOL HCL 10 MG TAB PO SCH ×2 (00:48→08:49)
[2018-02-01] MEDS: glipiZIDE 10 MG TAB PO SCH ×2 (06:05→16:00)
[2018-02-01] MEDS: clonazePAM 0.5 MG TAB PO SCH ×2 (06:05→14:38)
[2018-02-01 06:17] VITALS: BP 141/83; PULSE 83; RESP 16; TEMP 98; O2SAT 95
[2018-02-01] MEDS ORDERED: REME15TA PO (14:04)
[2018-02-01] MEDS ORDERED: CLON.5 PO (14:04)
[2018-02-01] MEDS ORDERED: ESCI10TA PO (14:04)
--- NOTE | 2018-02-01 14:05 | HHI.DS ---
Psychiatry Discharge Summary Advance Directive: No Reason Not Provided: Due to Patient Condition Mental Health AdvanceDirective: No Admission Admission Date Jan 28, 2018 at 13:42 Admission Diagnosis: Brief History This note was written by Sean Wilkins, MS3, revised and edited by me. 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 He was hospitalized 12/15/17 for a suicide attempt with Seroquel shortly after coming home from a business trip to [facility] that was cut short because of an episode of panic attack and nervous breakdown. After his discharge from the hospital, the patient has not returned to work and has been staying at home and under supervision of his and daughters. His is bringing him in voluntary basis today because he has not been himself and the Trintellex isnt helping his mood since his discharge in November and he had a panic attack after we went [place] walk [place] the [place] his family think with suicidal intentions, yesterday night saying he felt like he was trembling and his throat was closing. She is also worried because he has taken walks to a bridge and she is concerned he may make another suicidal attempt in the future but doesnt think he currently has suicidal ideations, no homicidal ideations and no audio or visual hallucinations or delusions. She does not feel like the Trintellex, prescribed one month ago is helping him and wants to have a second opinion with another psychiatrist. Per , patient is sleeping 6-7 hours per night if he takes his Seroquel but it is difficult for him to begin sleeping. He has lost interest in his work and per , He used to be on his phone constantly for work but his phone broke a month ago and he has not been concerned. She states he also feels very guilty because he feels like a burden putting his family through this ordeal and also feels guilty because he is not working and not able to provide for his family financially with an upcoming wedding for one of his daughters and another daughter who is having financial issues. Per , he has low energy and just sits around the house. He tried to do some trainings for his job but had to stop because he couldnt concentrate on the readings. She has also noticed his loss of appetite, stating that hes lost around 25 pounds in the past two months. When asked if the patient would like to be voluntarily admitted, patient initially refused. states it may be because his job requires him to report reasons for hospitalization. During the evaluation the patient presents with pronounced neurovegetative symptoms of depression including slow speech, fragmented thought, psychomotor retardation, flat affect, lack of motivation. 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 Substance History: He does nothave a history of alcoholism or drug abuse. Past Medical history: HTN. Tobacco Use In Past 30 Days: No Tobacco Past 30 Days Alcohol Use: Never Results Blood Pressure 141 / 83 Vital Signs Date Time Temp Pulse Resp B/P (MAP) Pulse Ox O2 Delivery O2 Flow Rate FiO2 02/01/18 06:17 98.0 83 16 141/83 (102) 95 01/28/18 14:05 Room Air Laboratory Results Test 01/29/18 08:29 Cholesterol Level 112 MG/DL (120-200) HDL Cholesterol 36.6 MG/DL (40.0-60.0) Hemoglobin A1c 5.1 % (4.3-6.0) LDL Cholesterol 60 MG/DL (0-99) Triglycerides Level 75 MG/DL (42-150) Medications Approp Antipsych med options 1 - Minimum of three failed multiple trials of monotherapy. 2 - Documented plan to taper to monotherapy due to previous use of multiple meds OR cross-taper in progress at [facility]. 3 - Documentation of augmentation of Clozapine. 4 - Justification other than those listed in allowable values 1-3, document here : Mental Status Examination Appearance: Appropriate Consciousness: Alert Orientation: x4 Motor Activity: Normal gait Speech: Hesitant, Slow Language: Adequate Fund of Knowledge: Adequate Attention and Concentration: Adequate Memory: Unremarkable Mood: Sad Affect: Sad, Blunt Thought Process & Associations: Intact Thought Content: Appropriate Hallucination Type: None Delusion Type: None Suicidal Ideation: No Suicidal Plan: No Suicidal Intention: No Homicidal Ideation: No Homicidal Plan: No Homicidal Intention: No Insight: Fair Judgment: Impulsive Discharge/Advance Care Plan Health Problems: (1) Major depressive disorder, recurrent Goals to promote your health * To prevent worsening of your condition and complications * To maintain your health at the optimal level Directions to meet your goals Take your medications as prescribed Follow your dietary instruction Follow activity as directed Keep your appointments as scheduled Take your immunizations and boosters as scheduled If your symptoms worsen call your PCP, if no PCP go to Urgent Care Center or Emergency Room For 16/03 questions related to your inpatient stay or results of tests pending at discharge, please contact Dr. Balta Soto at Smoking is Dangerous to Your Health. Avoid second hand smoking Balta Soto MD Feb 01, 2018 14:05
== END 2018-02-01 16:20 | disposition home or self-care (01) | DRG 885 ==
LOC: NEPD 10:10 → NEDA 13:42 → H260 14:35
PROVIDERS: ADMIT Psychiatry & Neurology Psychiatry; ATTEND Psychiatry & Neurology Psychiatry
DX: F33.2 Major depressive disorder, recurrent severe without psychotic features (principal); F41.0 Panic disorder [episodic paroxysmal anxiety]; I10 Essential (primary) hypertension; R73.03 Prediabetes; R63.0 Anorexia; G47.00 Insomnia, unspecified; Z91.5 Personal history of self-harm; Z79.899 Other long term (current) drug therapy
CPT/HCPCS: 80048; 80053; 80061; 80307; 83036; 84443; 85025; 93005; 99285

== ENCOUNTER 2018-02-08 09:37 | Emergency (ER) | payer BC ==
[~2018-02-08] VITALS: Ht 185.4 cm; Wt 110.0 kg
[~2018-02-08 09:37] MED LIST changes: -AMLO10TA2 PO; +BUSP10TA PO; +ESCI10TA PO; -LEXA20TA PO; +REME15TA PO; -SERO200T PO; +SERO400T PO; -TRAZ50TA12 PO; +VORT1TAB PO
[2018-02-08 09:40] VITALS: BP 146/89; PULSE 110; RESP 16; TEMP 97.8; O2SAT 96
--- NOTE | 2018-02-08 10:06 | PD ---
HPI Chief Complaint: Medical Clearance Time Seen by Provider: 10:00 Travel History International Travel<30 days: No Contact w/Intl Traveler<30days: No History of Present Illness HPI 57-year-old male with a history of major depressive disorder presents to the emergency room for recheck. Patient was discharged from inpatient psychiatric jean on February 01. He was told by Dr. Lim to return to the emergency room for checkup if he could not find outpatient follow-up because he was started on new medications. Patient is in the process of establishing outpatient care but has not been able to get approved to start. He is with his who provides much of the history. Patient denies any physical complaints at this time. He has history of diabetes and hypertension. Denies any other significant past medical history. States he is slightly nervous to be here. He reports feeling depressed but denies any suicidal or homicidal ideation at this time. PFSH Past Medical History Autoimmune Disease: No Anxiety: Yes Depression: Yes (PANIC ATTACKS) Cancer: No Cardiac Catheterization: Yes Cardiovascular Problems: Yes Chest Pain: Yes Cerebrovascular Accident: No Diabetes: Yes (Prediabetes) Diminished Hearing: No Endocrine: Yes Genitourinary: No Headaches: Yes Hypertension: Yes Immune Disorder: No Musculoskeletal: No Neurologic: Yes Psychiatric: Yes (Depression diagnosed in 2010) Reproductive: No Respiratory: No Migraines: No Seizures: No Past Surgical History Other Surgery: Yes (Hemmorhoidectomy "several years ago") Social History Alcohol Use: No Tobacco Use: No Substance Use: No Allergies-Medications (Allergen,Severity, Reaction): Coded Allergies: No Known Allergies (Verified Allergy, Unknown, 01/28/18) Reported Meds & Prescriptions Reported Meds & Active Scripts Active Mirtazapine 30 Mg Tab 30 Mg PO HS Remeron (Mirtazapine) 15 Mg Tab 15 Mg PO HS Klonopin (Clonazepam) 0.5 Mg Tab 0.5 Mg PO Q8HR Escitalopram (Escitalopram Oxalate) 10 Mg Tab 40 Mg PO HS Reported Glipizide 10 Mg Tab 10 Mg PO BIDAC Take 30 minutes before a meal Review of Systems Except as stated in HPI: all other systems reviewed are Neg Physical Exam Narrative GENERAL: Well-nourished, well-developed male no acute distress. Afebrile. Ambulatory. SKIN: Focused skin assessment warm/dry. HEAD: Normocephalic. EYES: No scleral icterus. No injection or drainage. NECK: Supple, trachea midline. No JVD or lymphadenopathy. CARDIOVASCULAR: Regular rate and rhythm without murmurs, gallops, or rubs. RESPIRATORY: Breath sounds equal bilaterally. No accessory muscle use. PSYCHIATRIC: No delusional thought processes. No hallucinations. Flat affect. Depressed mood. Data Data Last Documented VS Vital Signs Date Time Temp Pulse Resp B/P (MAP) Pulse Ox O2 Delivery O2 Flow Rate FiO2 02/08/18 09:40 97.8 110 16 146/89 (108) 96 MDM Medical Decision Making Medical Screen Exam Complete: Yes Emergency Medical Condition: Yes Medical Record Reviewed: Yes Differential Diagnosis Major depressive disorder, medication refill, psychiatric follow-up, adjustment disorder Narrative Course 57-year-old male presents to the emergency room for follow-up/recheck after being started on psychiatric medications a week ago. He was told by Dr. Lim to return here if he cannot establish outpatient care. He is in the process of establishing care but was unable to thus far. Denies physical complaints. I spoke to Ozzie booth who states Dr. Lim will be over soon to speak with the patient. 11:33 AM: Patient was seen by Dr. Lim in the ED. His prescription was updated. After checkup, he left prior to instructions. Diagnosis Primary Impression: Major depressive disorder, recurrent Qualified Codes: F33.9 - Major depressive disorder, recurrent, unspecified Scripts Mirtazapine (Mirtazapine) 30 Mg Tab 30 MG PO HS for Depression Control, #30 TAB 0 Refills Prov: Balta Soto MD 02/08/18 Disposition: 01 DISCHARGE HOME Condition: Stable Gladys Guallpa Feb 08, 2018 10:06
[2018-02-08] MEDS ORDERED: MIRT30TA PO (11:23)
--- NOTE | 2018-02-08 16:07 | PD.PSY.CON ---
Provisional Diagnosis Admission Date [place] I. Major depressive disorder, recurrent, severe, without psychosis [place] II. 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 2 psychiatric hospitalizations, last one about 2 weeks ago here at [facility], he is on Lexapro 40 mg, Remeron 15 mg, clonazepam 0.5 mg twice daily, no significant medical history, who presents to the emergency room for recheck. Patient was discharged from inpatient psychiatric jean on February 01. He was told by Dr. Lim to return to the emergency room for checkup if he could not find outpatient follow-up because he was started on new medications. Patient is in the process of establishing outpatient care but has not been able to get approved to start. He is with his who provides much of the history. Patient denies any physical complaints at this time. He has history of diabetes and hypertension. Denies any other significant past medical history. States he is slightly nervous to be here. He reports feeling depressed but denies any suicidal or homicidal ideation at this time. On psychiatric evaluation today patient is calm, cooperative, continues to have a quite flat affect. He also has a visible slow thought process, respiratory speech and psychomotor retardation, but he reports feeling better, being a little bit more energetic, engaging in more activities, motivated to get better. Patient also reports less anxiety, better sleep at night, even though in the morning he does not feel 100% rested. He denies suicidal and homicidal ideation, he denies visual and auditory hallucinations. His , present during the evaluation, reports that she is happy with the improvement, even though is not even close to be to baseline. Patient is in the process to get an appointment with Dr. Finn in [place]. Review of Systems Constitutional: DENIES: Diaphoretic episodes, Fatigue, Fever, Weight gain, Weight loss, Chills, Dizziness, Change in appetite, Night Sweats Endocrine: DENIES: Heat/cold intolerance, Polydipsia, Polyuria, Polyphagia Eyes: DENIES: Blurred vision, Diplopia, Eye inflammation, Eye pain, Vision loss , Photosensitivity, Double Vision Ears, nose, mouth, throat: DENIES: Tinnitus, Hearing loss, Vertigo, Nasal discharge, Oral lesions, Throat pain, Hoarseness, Ear Pain, Running Nose, Epistaxis, Sinus Pain, Toothache, Odynophagia Respiratory: DENIES: Apneas, Cough, Snoring, Wheezing, Hemoptysis, Sputum production, Shortness of breath Cardiovascular: DENIES: Chest pain, Palpitations, Syncope, Dyspnea on Exertion , PND, Lower Extremity Edema, Orthopnea, Claudication Gastrointestinal: DENIES: Abdominal pain, Black stools, Bloody stools, Constipation, Diarrhea, Nausea, Vomiting, Difficulty Swallowing, Anorexia Genitourinary: DENIES: Sexual dysfunction, Urinary frequency, Urinary incontinence, Urgency, Hematuria, Dysuria, Nocturia, Penile Discharge, Testicular Pain, Testicular Swelling Musculoskeletal: DENIES: Joint pain, Muscle aches, Stiffness, Joint Swelling, Back pain, Neck pain Integumentary: DENIES: Abnormal pigmentation, Nail changes, Pruritus, Rash Hematologic/lymphatic: DENIES: Bruising, Lymphadenopathy Immunologic/allergic: DENIES: Eczema, Urticaria Neurologic: DENIES: Abnormal gait, Headache, Localized weakness, Paresthesias, Seizures, Speech Problems, Tremor, Poor Balance Psychiatric: COMPLAINS OF: Anxiety, Mood changes, Depression Past Family Social History Coded Allergies: No Known Allergies (Verified Allergy, Unknown, 01/28/18) Active Scripts Mirtazapine (Mirtazapine) 30 Mg Tab, 30 MG PO HS for Depression Control, #30 TAB 0 Refills Prov:Balta Soto MD 02/08/18 Mirtazapine (Remeron) 15 Mg Tab, 15 MG PO HS for Depression Control, #30 TAB 0 Refills Prov:Balta Soto MD 02/01/18 Clonazepam (Klonopin) 0.5 Mg Tab, 0.5 MG PO Q8HR for anxiety, #45 TAB 0 Refills Prov:Balta Soto MD 02/01/18 Escitalopram (Escitalopram) 10 Mg Tab, 40 MG PO HS for Depression Control, #30 TAB 0 Refills Prov:Balta Soto MD 02/01/18 Reported Medications Glipizide (Glipizide) 10 Mg Tab, 10 MG PO BIDAC for Blood Sugar Management, #60 TAB 0 Refills Take 30 minutes before a meal 01/28/18 Discontinued Reported Medications Escitalopram (Escitalopram) 10 Mg Tab, 10 MG PO EVERY OTHER DAY, #30 TAB 0 Refills 01/28/18 Quetiapine (Seroquel) 400 Mg Tab, 400 MG PO HS, #30 TAB 0 Refills 01/28/18 Buspirone (Buspirone) 10 Mg Tab, 10 MG PO BID for Anxiety, TAB 0 Refills 01/28/18 Vortioxetine (Trintellix) 5 Mg Tab, 5 MG PO DAILY for Control Depression, #30 TAB 0 Refills 01/28/18 Family Psych History No family psychiatric history Social History The patient lives in [place] with his family, 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 2) Family support Physical Exam Psychomotor retardation, flat affect, but no agitation, no withdraws, no stiffness, no waxy flexibility Vital Signs Vital Signs Date Time Temp Pulse Resp B/P (MAP) Pulse Ox O2 Delivery O2 Flow Rate FiO2 02/08/18 09:40 97.8 110 16 146/89 (108) 96 Mental Status Examination Appearance: Appropriate Consciousness: Alert Orientation: x4 Motor Activity: Normal gait, Other (Psychomotor retardation) Speech: Unremarkable Language: Adequate Fund of Knowledge: Adequate Attention and Concentration: Adequate Memory: Unremarkable Mood: Sad Affect: Flat Thought Process & Associations: Intact Thought Content: Appropriate Hallucination Type: None Delusion Type: None Suicidal Ideation: No Suicidal Plan: No Suicidal Intention: No Homicidal Ideation: No Homicidal Plan: No Homicidal Intention: No Insight: Adequate Judgment: Adequate Assessment & Plan Problem List: (1) Major depressive disorder, recurrent ICD Codes: F33.9 - Major depressive disorder, recurrent, unspecified Assessment & Plan: The patient evaluation shows slight improvement in depression, with better energy, better sleep, engaging in more activities at home. But continues to show a very flat affect, psychomotor retardation, slow thinking, monotonous speech. Continue Lexapro 40 mg, increase Remeron to 30 mg at bedtime to help with the depression and sleep. Brief supportive psychotherapy, motivational psychoeducation provided. Assessment & Plan Estimated LOS: days Problem Qualifiers (1) Major depressive disorder, recurrent: Qualified Codes: F33.9 - Major depressive disorder, recurrent, unspecified Balta Soto MD Feb 08, 2018 16:07
== END 2018-02-08 11:55 | disposition home or self-care (01) ==
LOC: NEPK 09:37
DX: F33.2 Major depressive disorder, recurrent severe without psychotic features (principal); F41.0 Panic disorder [episodic paroxysmal anxiety]; I10 Essential (primary) hypertension; E11.9 Type 2 diabetes mellitus without complications; Z79.84 Long term (current) use of oral hypoglycemic drugs
CPT/HCPCS: 99284